=== PATIENT | female | born 1935 | race Caucasian/White ===

== ENCOUNTER 2018-01-01 16:14 | Emergency (ER) | payer MEDICARE ==
[2018-01-01 16:29] VITALS: BP 115/79
[2018-01-01] MEDS ORDERED: SODIUM CHLORIDE 0.9% 500 ML IV ONE (16:50)
[2018-01-01] MEDS ORDERED: LORazepam 0.5 MG TABLET PO STA (16:50)
--- NOTE | 2018-01-01 16:53 | ED Physician Documentation ---
History of Present Illness - Stated complaint Stated Complaint: SOA - Chief complaint Chief Complaint: Resp - History obtained from History obtained from: Patient, Family - History of Present Illness Timing: Yesterday Pain level max: 0 Pain level now: 0 Improved by: nothing Worsened by: nothing - Additonal information Additional information: Patient is an 82-year-old female who lives at home with her daughter. She states she has not slept for the last 24 hours. Has been having feelings of increasing anxiety. Has had anxiety attacks in the past. States that when this happened she feels like she cannot breathe. Has not taken anything for the anxiety. She also states that she has had increased urinary frequency and is concerned that she may have a UTI. No abdominal pain. No headache. No chest pain. 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 : Incontinence HEENT: Glaucoma Psych: Anxiety Musculoskeletal: Chronic back pain Derm: None - Past Surgical History Past Surgical History: No - Present Medications Home Medications: Ambulatory Orders Medication Instructions Recorded Confirmed Citalopram [CeleXA] 40 mg PO DAILY 08/16/15 08/24/15 Omeprazole 20 mg PO DAILY 08/16/15 08/24/15 Tolterodine Tartrate [Tolterodine 1 cap DAILY 08/16/15 08/24/15 Tartrate ER] oxyCODONE/ACET 5/325 [Percocet 5 1 each PO Q4-6H PRN #20 tablet 08/16/15 mg/325 mg] traZODone [Desyrel] 75 mg PO Q24HR@2100 08/16/15 08/24/15 Cyclobenzaprine [Flexeril] 10 mg PO TID PRN #20 tablet 08/24/15 Gabapentin 300 mg PO TID #90 capsule 08/24/15 Simvastatin 40 mg PO 08/24/15 oxyCODONE [Roxicodone] 10 mg PO Q6H PRN #20 tablet 08/24/15 - Allergies Allergies/Adverse Reactions: Allergies Allergy/AdvReac Type Severity Reaction Status Date / Time codeine AdvReac Itching Verified 01/01/18 16:29 - Social History Does the pt smoke?: No Smoking Status: Never smoker Does the pt drink ETOH?: No Does the pt have substance abuse?: No - Immunizations Immunizations are current?: Yes - POLST Patient has POLST: No PD ED PE NORMAL - Vitals Vital signs reviewed: Yes - General General: Alert and oriented X 3, No acute distress, Well developed/nourished - HEENT HEENT: PERRL, Moist mucous membranes - Neck Neck: Supple, no meningeal sign - Cardiac Cardiac: RRR, Strong equal pulses - Respiratory Respiratory: No respiratory distress, Clear bilaterally - Abdomen Abdomen: Soft, Non tender, Non distended - Back Back: No CVA TTP, No spinal TTP - Derm Derm: Warm and dry, No rash - Extremities Extremities: No edema, No calf tenderness / cord - Neuro Neuro: Alert and oriented X 3 - Psych Psych: Normal mood, Normal affect Results - Vitals Vitals: Vital Signs - 24 hr 01/01/18 16:15 Temperature 37.4 C Heart Rate 68 Respiratory 20 Rate Blood Pressure 115/79 O2 Saturation 97 Oxygen O2 Source Room air - Labs Labs: Laboratory Tests 01/01/18 01/01/18 01/01/18 17:00 17:00 17:35 WBC 8.9 RBC 4.16 L Hgb 12.9 Hct 37.2 MCV 89.5 MCH 30.9 MCHC 34.6 RDW 13.1 Plt Count 227 MPV 9.6 Neut # (Auto) 6.0 Lymph # (Auto) 2.0 [place] # (Auto) 0.7 Eos # (Auto) 0.2 Baso # (Auto) 0.1 Absolute Nucleated RBC 0.00 Nucleated RBC % 0.1 Sodium 139 Potassium 3.6 Chloride 103 Carbon Dioxide 25 Anion Gap 11.0 BUN 13 Creatinine 0.7 Estimated GFR (MDRD) 81 L Glucose 108 H Calcium 9.4 Total Bilirubin 0.8 AST 20 ALT 16 Alkaline Phosphatase 74 Total Protein 7.3 Albumin 4.2 Globulin 3.1 Albumin/Globulin Ratio 1.4 Lipase 17 L Urine Color YELLOW Urine Clarity CLEAR Urine pH 6.0 Ur Specific [place] 1.010 Urine Protein NEGATIVE Urine Glucose (UA) NEGATIVE Urine Ketones TRACE Urine Occult Blood NEGATIVE Urine Nitrite NEGATIVE Urine Bilirubin NEGATIVE Urine Urobilinogen 1 (NORMAL) Ur Leukocyte Esterase NEGATIVE Ur Microscopic Review NOT INDICATED Urine Culture Comments NOT INDICATED PD MEDICAL DECISION MAKING - ED course Complexity details: reviewed results, re-evaluated patient, considered differential, d/w patient, d/w family ED course: Patient is an 82-year-old female who presents to the emergency department with what appears to be anxiety. She also does appear slightly dehydrated on examination, therefore IV fluids were given, 500 mL's of normal saline. Also given Ativan. Feels much better. Lungs are clear to auscultation bilaterally. No fever. No cough. Chest x-ray held at this time. She has chronic dyspnea. Has been worked up for this several times in the past. Family is comfortable taking her home at this time. Patient and family counseled regarding signs and symptoms for which I believe and urgent re-evaluation would be necessary. Patient with good understanding of and agreement to plan and is comfortable going home at this time This document was made in part using voice recognition software. While efforts are made to proofread this document, sound alike and grammatical errors may occur. - Sepsis Event Vital Signs: Vital Signs - 24 hr 01/01/18 16:15 Temperature 37.4 C Heart Rate 68 Respiratory 20 Rate Blood Pressure 115/79 O2 Saturation 97 Oxygen O2 Source Room air Departure - Departure Disposition: 01 Home, Self Care Clinical Impression: Dehydration, Anxiety Condition: Good Instructions: ED Dehydration, ED Panic Attack Follow-Up: Brennen Driver MD [Primary Care Provider] - Within 1 week Comments: your tests are normal today. Follow up with Dr. Driver for further care. Return if you worsen. You should discuss with your doctor medication for your anxiety. Discharge Date/Time: 01/01/18 18:21
[2018-01-01 17:14] LABS: BASOPHILS # (AUTO) 0.1 10^3/uL (0.0-0.1); BASOPHILS % (AUTO) 0.8 %; EOSINOPHILS # (AUTO) 0.2 10^3/uL (0.0-0.7); EOSINOPHILS % (AUTO) 1.8 %; HGB - HEMOGLOBIN 12.9 g/dL (12.0-16.0); LYMPHOCYTES % (AUTO) 22.2 %; MEAN CORPUSCULAR HEMOGLOBIN 30.9 pg (27.0-31.0); MEAN CORPUSCULAR HGB CONC 34.6 g/dL (32.0-36.0); MEAN CORPUSCULAR VOLUME 89.5 fL (81.0-99.0); MEAN PLATELET VOLUME 9.6 fL (7.9-10.8); MONOCYTES # (AUTO) 0.7 10^3/uL (0.0-1.0); MONOCYTES % (AUTO) 7.3 %; NEUTROPHILS % (AUTO) 67.9 %; PLT - PLATELET COUNT 227 10^3/uL (130-450); RED BLOOD COUNT 4.16 10^6/uL (4.20-5.40); RED CELL DISTRIBUTION WIDTH 13.1 % (12.0-15.0); WHITE BLOOD COUNT 8.9 x10^3/uL (4.8-10.8)
[2018-01-01 17:28] LABS: ALBUMIN 4.2 g/dL (3.2-5.5); ALBUMIN/GLOBULIN RATIO 1.4 (1.0-2.2); BILIRUBIN,TOTAL 0.8 mg/dL (0.2-1.0); CALCIUM 9.4 mg/dL (8.5-10.3); CREATININE 0.7 mg/dL (0.4-1.0); TOTAL PROTEIN 7.3 g/dL (6.7-8.2)
[2018-01-01 17:53] LABS: BILIRUBIN,URINE NEGATIVE (NEGATIVE); GLUCOSE, URINE (UA) NEGATIVE (NEGATIVE); KETONES,URINE (UA) TRACE mg/dL (NEGATIVE); LEUKOCYTE ESTERASE, URINE NEGATIVE (NEGATIVE); NITRITE,URINE NEGATIVE (NEGATIVE); OCCULT BLOOD,URINE NEGATIVE (NEGATIVE); PROTEIN,URINE NEGATIVE (NEGATIVE); UROBILINOGEN,URINE 1 (NORMAL) E.U./dL (NORMAL)
[2018-01-01 17:59] LABS: CLARITY,URINE CLEAR (CLEAR)
== END 2018-01-01 18:21 | disposition home or self-care (01) ==
LOC: ED 16:14
DX: E86.0 Dehydration (principal); F41.9 Anxiety disorder, unspecified; E78.00 Pure hypercholesterolemia, unspecified
CPT/HCPCS: 36415; 80053; 81003; 83690; 85025; 96360; 99283; 99284; A9270; 81001; 87086

== ENCOUNTER 2019-06-13 01:24 | Emergency (ER) | payer MEDICARE, OTHER ==
--- NOTE | 2019-06-13 01:41 | ED Physician Documentation ---
History of Present Illness - Stated complaint Stated Complaint: DIFFICULTY BREATHING - Chief complaint Chief Complaint: Resp - History obtained from History obtained from: Patient, Family (83-year-old female history of anxiety, hyperlipidemia, chronic lower back pain presented emergency room with sudden onset of shortness of breath 2 hours after she went to bed. This happened at 1:00 in the morning. There was no complaint of chest pain. No nausea no vomiting. In emergency room patient appears mildly anxious and hyperventilating. She is accompanied by her daughter who present to me most of the history. Patient is alert and oriented x3. No recent long distance travel. No prior history of DVT, no prior history of pulmonary embolism. Cardiac risk factor: Hyperlipidemia,) - History of Present Illness Timing: Prior to arrival Review of Systems Ten Systems: 10 systems reviewed and negative Constitutional: reports: Reviewed and negative Eyes: reports: Reviewed and negative Ears: reports: Reviewed and negative Nose: reports: Reviewed and negative Throat: reports: Reviewed and negative Cardiac: reports: Reviewed and negative Respiratory: reports: Dyspnea. 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 : Incontinence HEENT: Glaucoma Psych: Anxiety Musculoskeletal: Chronic back pain Derm: None - Past Surgical History Past Surgical History: No - Present Medications Home Medications: Ambulatory Orders Medication Instructions Recorded Confirmed Citalopram [CeleXA] 40 mg PO DAILY 08/16/15 08/24/15 Omeprazole 20 mg PO DAILY 08/16/15 08/24/15 Tolterodine Tartrate [Tolterodine 1 cap DAILY 08/16/15 08/24/15 Tartrate ER] oxyCODONE/ACET 5/325 [Percocet 5 1 each PO Q4-6H PRN #20 tablet 08/16/15 08/24/15 mg/325 mg] traZODone [Desyrel] 75 mg PO Q24HR@2100 08/16/15 08/24/15 Cyclobenzaprine [Flexeril] 10 mg PO TID PRN #20 tablet 08/24/15 Gabapentin 300 mg PO TID #90 capsule 08/24/15 Simvastatin 40 mg PO 08/24/15 oxyCODONE [Roxicodone] 10 mg PO Q6H PRN #20 tablet 08/24/15 Alprazolam [Xanax] 0.5 mg PO PRN PRN #10 tablet 06/13/19 - Allergies Allergies/Adverse Reactions: Allergies Allergy/AdvReac Type Severity Reaction Status Date / Time codeine AdvReac Itching Verified 01/01/18 16:29 - Social History Does the pt smoke?: No Smoking Status: Never smoker Does the pt drink ETOH?: No Does the pt have substance abuse?: No - Immunizations Immunizations are current?: Yes - POLST Patient has POLST: No PD ED PE NORMAL - Vitals Vital signs reviewed: Yes - General General: Alert and oriented X 3, No acute distress - HEENT HEENT: PERRL - Neck Neck: Supple, no meningeal sign - Cardiac Cardiac: RRR, No murmur - Respiratory Respiratory: Other (Scanty basal inspiratory rhonchi) - Abdomen Abdomen: Normal bowel sounds, Soft, Non tender, Non distended - Derm Derm: Warm and dry - Extremities Extremities: No deformity - Neuro Neuro: Alert and oriented X 3 - Psych Psych: Normal mood, Normal affect Results - Vitals Vitals: Vital Signs - 24 hr 06/13/19 06/13/19 06/13/19 01:32 02:36 04:00 Temperature 36.1 C L 37.2 C Heart Rate 86 81 79 Respiratory 24 17 20 Rate Blood Pressure 154/53 H 121/79 138/72 H O2 Saturation 96 99 96 Oxygen O2 Source Room air - EKG (time done) No standard instances Rate: Rate (enter#) (85) Rhythm: NSR [place]: Normal Intervals: Normal NH QRS: Normal Ischemia: Normal ST segments - Labs Labs: Laboratory Tests 06/13/19 06/13/19 06/13/19 01:40 01:40 01:40 WBC 9.5 RBC 4.71 Hgb 14.3 Hct 43.0 MCV 91.3 MCH 30.4 MCHC 33.3 RDW 12.1 Plt Count 260 MPV 11.6 H Neut # (Auto) 6.9 H Lymph # (Auto) 1.8 [place] # (Auto) 0.6 Eos # (Auto) 0.1 Baso # (Auto) 0.1 Absolute Nucleated RBC 0.00 Nucleated RBC % 0.0 D-Dimer > 1050.0 H Sodium 139 Potassium 4.0 Chloride 105 Carbon Dioxide 21 Anion Gap 13.0 BUN 10 Creatinine 0.8 Estimated GFR (MDRD) 69 L Glucose 133 H Calcium 9.3 Total Bilirubin 0.8 AST 24 ALT 22 Alkaline Phosphatase 70 Troponin I High Sens B-Natriuretic Peptide Total Protein 7.7 Albumin 4.4 Globulin 3.3 Albumin/Globulin Ratio 1.3 Lipase 21 L Urine Color Urine Clarity Urine pH Ur Specific [place] Urine Protein Urine Glucose (UA) Urine Ketones Urine Occult Blood Urine Nitrite Urine Bilirubin Urine Urobilinogen Ur Leukocyte Esterase Urine RBC Urine WBC Ur Squamous Epith Cells Urine Bacteria Urine Culture Comments 06/13/19 06/13/19 06/13/19 01:40 01:40 03:45 WBC RBC Hgb Hct MCV MCH MCHC RDW Plt Count MPV Neut # (Auto) Lymph # (Auto) [place] # (Auto) Eos # (Auto) Baso # (Auto) Absolute Nucleated RBC Nucleated RBC % D-Dimer Sodium Potassium Chloride Carbon Dioxide Anion Gap BUN Creatinine Estimated GFR (MDRD) Glucose Calcium Total Bilirubin AST ALT Alkaline Phosphatase Troponin I High Sens 4.1 3.9 B-Natriuretic Peptide 79 Total Protein Albumin Globulin Albumin/Globulin Ratio Lipase Urine Color Urine Clarity Urine pH Ur Specific [place] Urine Protein Urine Glucose (UA) Urine Ketones Urine Occult Blood Urine Nitrite Urine Bilirubin Urine Urobilinogen Ur Leukocyte Esterase Urine RBC Urine WBC Ur Squamous Epith Cells Urine Bacteria Urine Culture Comments 06/13/19 04:30 WBC RBC Hgb Hct MCV MCH MCHC RDW Plt Count MPV Neut # (Auto) Lymph # (Auto) [place] # (Auto) Eos # (Auto) Baso # (Auto) Absolute Nucleated RBC Nucleated RBC % D-Dimer Sodium Potassium Chloride Carbon Dioxide Anion Gap BUN Creatinine Estimated GFR (MDRD) Glucose Calcium Total Bilirubin AST ALT Alkaline Phosphatase Troponin I High Sens B-Natriuretic Peptide Total Protein Albumin Globulin Albumin/Globulin Ratio Lipase Urine Color YELLOW Urine Clarity CLEAR Urine pH 6.5 Ur Specific [place] <=1.005 Urine Protein NEGATIVE Urine Glucose (UA) NEGATIVE Urine Ketones TRACE Urine Occult Blood NEGATIVE Urine Nitrite NEGATIVE Urine Bilirubin NEGATIVE Urine Urobilinogen 4 H Ur Leukocyte Esterase NEGATIVE Urine RBC 0-5 Urine WBC 0-3 Ur Squamous Epith Cells FEW Squamous Urine Bacteria Rare Urine Culture Comments NOT INDICATED - Rads (name of study) chest Radiology: Other (Stable appearance of the chest without acute cardiopulmonary abnormality. ) ct Radiology: Other (IMPRESSION: No evidence of pulmonary embolism, there is moderate to severe aortic atherosclerosis. There is no significant pulmonary consolidation there is a 5 mm right apical and left lower lobe nodule this may be a sequelae of infection or inflammatory process) PD MEDICAL DECISION MAKING - ED course Complexity details: d/w patient, d/w family ED course: This lady presented with symptom of shortness of breath and anxiety. She is accompanied by her daughter at bedside. Initial diagnosis include acute coronary syndrome, COPD, asthma, pneumothorax, pneumonia,. Work-up has been initiated D-dimer appeared to be elevated. There is a need to further differential diagnosis of pulmonary embolism. At 340 in the morning, patient disclose negative CT scan of the chest for pulmonary embolism. There is however a nodule of 5 mm that is very nonspecific. There disclose this information and asked to follow-up with her [facility] doctor for further surveillance In the emergency room patient has been feeling well. patient is disclosed negative troponin x2. I believe the initial presentation of shortness of breath is consistent with what she feel, anxiety related. She will be given a prescription of Xanax and asked to follow with her primary care doctor for further management. She understood and agree Departure - Departure Disposition: 01 Home, Self Care Clinical Impression: Anxiety Dyspnea Qualifiers: Dyspnea type: shortness of breath Qualified Code(s): R06.02 - Shortness of breath Condition: Stable Record reviewed to determine appropriate education?: Yes Plan of Treatment: Please take Xanax as needed only when you have anxiety problem Instructions: ED Dyspnea Shortness of Breath, ED Anxiety Reaction Follow-Up: Brennen Driver MD [Primary Care Provider] - Prescriptions: Alprazolam [Xanax] 0.5 mg PO PRN PRN #10 tablet PRN Reason: Anxiety
[2019-06-13 01:51] LABS: BASOPHILS # (AUTO) 0.1 10^3/uL (0.0-0.1); BASOPHILS % (AUTO) 0.7 %; EOSINOPHILS # (AUTO) 0.1 10^3/uL (0.0-0.7); EOSINOPHILS % (AUTO) 1.2 %; HGB - HEMOGLOBIN 14.3 g/dL (12.0-16.0); LYMPHOCYTES # (AUTO) 1.8 10^3/uL (1.5-3.5); LYMPHOCYTES % (AUTO) 19.3 %; MEAN CORPUSCULAR HEMOGLOBIN 30.4 pg (27.0-31.0); MEAN CORPUSCULAR HGB CONC 33.3 g/dL (32.0-36.0); MEAN CORPUSCULAR VOLUME 91.3 fL (81.0-99.0); MEAN PLATELET VOLUME 11.6 fL (7.9-10.8); MONOCYTES # (AUTO) 0.6 10^3/uL (0.0-1.0); MONOCYTES % (AUTO) 5.9 %; NEUTROPHILS # (AUTO) 6.9 10^3/uL (1.5-6.6); NEUTROPHILS % (AUTO) 72.5 %; PLT - PLATELET COUNT 260 10^3/uL (130-450); RED BLOOD COUNT 4.71 10^6/uL (4.20-5.40); RED CELL DISTRIBUTION WIDTH 12.1 % (12.0-15.0); WHITE BLOOD COUNT 9.5 x10^3/uL (4.8-10.8)
--- NOTE | 2019-06-13 02:02 | XRAY Report ---
Reason: Chest Pain Procedure Date: 06/13/2019 Accession Number: [id number] / [id number] Procedure: XR - Chest 1 View X-Ray CPT Code: 40497 Final Report FULL RESULT: EXAM: CHEST RADIOGRAPHY EXAM DATE: 06/13/2019 01:56 AM. CLINICAL HISTORY: Chest Pain. COMPARISON: CHEST 2 VIEW PA/LAT 07/14/2015 2:13 PM. TECHNIQUE: 1 view. FINDINGS: Lungs/Pleura: No significant consolidation, effusion, or definite pneumothorax. Mediastinum: Cardiac silhouette is within normal limits when accounting for lung volumes and technique. Other: Moderate bilateral shoulder degenerative change. IMPRESSION: Stable appearance of the chest without acute cardiopulmonary abnormality. RADIA
[2019-06-13 02:03] LABS: ALBUMIN 4.4 g/dL (3.2-5.5); ALBUMIN/GLOBULIN RATIO 1.3 (1.0-2.2); BILIRUBIN,TOTAL 0.8 mg/dL (0.2-1.0); CALCIUM 9.3 mg/dL (8.5-10.3); CREATININE 0.8 mg/dL (0.4-1.0); TOTAL PROTEIN 7.7 g/dL (6.7-8.2)
[2019-06-13] MEDS: IPRATROPIUM/ALBUTEROL 3 ML NEB INH STA ×2 (02:06→02:16)
[2019-06-13] MEDS ORDERED: LORazepam 2 MG/ML VIAL IVP STA (02:22)
[2019-06-13] MEDS ORDERED: IOVERSOL 320 100 ML VIAL IVP ONE ×2 (02:33→03:03)
--- NOTE | 2019-06-13 03:30 | CT Report ---
Reason: shortness of breath with elevated d-dimer Procedure Date: 06/13/2019 Accession Number: [id number] / [id number] Procedure: CT - ANGIO CHEST W/WO CPT Code: Final Report FULL RESULT: EXAM: CT ANGIOGRAM CHEST CT ANGIOGRAM ABDOMEN EXAM DATE: 06/13/2019 03:05 AM CLINICAL HISTORY: Shortness of breath with elevated D-dimer. COMPARISON: None. TECHNIQUE: Axial helical multidetector images of the chest are acquired in the pulmonary arterial phase. Angiographic images of the abdominal structures are acquired. IV Contrast: 80 mL Optiray 320. Reconstructions: Coronal 3D MIP reconstructions. Sagittal and coronal. In accordance with CT protocol optimization, one or more of the following dose reduction techniques were utilized for this exam: automated exposure control, adjustment of mA and/or KV based on patient size, or use of iterative reconstructive technique. FINDINGS: Pulmonary Arteries: There is adequate opacification through the segmental arteries. No evidence for acute or chronic pulmonary emboli. Lungs and Pleura: Breathing motion artifact compromises sensitivity and specificity. There is a small indistinct nodular focus within the right apex region laterally, measuring 5.2 mm (image 53 series 7). Similar small indistinct nodule within the left lower lobe measuring 5 mm (image 185 series 3). No pulmonary consolidation. No effusion. There is mild bilateral apical paraseptal emphysema, right greater than left. Central Airways: Visualized central airways are without suspicious filling defects. Chest Wall: No significant abnormality. Thyroid: No significant abnormality. Mediastinum: No significant abnormality. Heart: Normal in size. Mild to moderate coronary vascular calcifications. No significant pericardial effusion. Thoracic Aorta: Moderate to severe aortic atherosclerosis is noted. There is no evidence of aortic aneurysm or dissection. Abdomen: There is severe abdominal aortic atherosclerosis. No evidence of abdominal aortic dissection. No evidence of abdominal aortic aneurysm. 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 Moderate to severe atherosclerosis within the renal arteries bilaterally. Detailed assessment of the abdominal parenchymal organs compromised by breathing motion. 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 No abnormally dilated bowel loops noted to suggest obstruction. Bones: No suspicious bony lesions evident. Moderate multilevel degenerative changes within the spine. IMPRESSION: 1. No evidence of pulmonary embolism. 2. There is moderate to severe aortic atherosclerosis. There is moderate to severe multifocal branch vessel stenoses within the abdominal aorta. 3. There is no significant pulmonary consolidation. Nonspecific 5 mm right apical and left lower lobe nodule. These may be a sequela of infection or inflammatory process. Aggressive management of this nodule is of uncertain clinical benefit in this elderly patient with atherosclerotic vascular disease. If clinically warranted, this could be further assessed with a follow-up noncontrast chest CT at 12 months. TANISHA
[2019-06-13 04:39] VITALS: BP 138/72
[2019-06-13 04:55] LABS: BILIRUBIN,URINE NEGATIVE (NEGATIVE); GLUCOSE, URINE (UA) NEGATIVE (NEGATIVE); KETONES,URINE (UA) TRACE mg/dL (NEGATIVE); LEUKOCYTE ESTERASE, URINE NEGATIVE (NEGATIVE); NITRITE,URINE NEGATIVE (NEGATIVE); OCCULT BLOOD,URINE NEGATIVE (NEGATIVE); PH,URINE 6.5 PH (5.0-7.5); PROTEIN,URINE NEGATIVE (NEGATIVE); UROBILINOGEN,URINE 4 E.U./dL (NORMAL)
[2019-06-13 04:56] LABS: CLARITY,URINE CLEAR (CLEAR)
[2019-06-13 05:00] LABS: RBC,URINE 0-5 /HPF (0-5)
[2019-06-13 05:01] LABS: BACTERIA,URINE Rare /HPF (None Seen); SQUAMOUS EPITHELIAL CELL,UR FEW Squamous (<= Few)
== END 2019-06-13 05:16 | disposition home or self-care (01) ==
LOC: ED 01:24
DX: F41.9 Anxiety disorder, unspecified (principal); R06.02 Shortness of breath; R79.89 Other specified abnormal findings of blood chemistry; R91.1 Solitary pulmonary nodule; E78.5 Hyperlipidemia, unspecified; M54.5 Low back pain; G89.29 Other chronic pain
CPT/HCPCS: 36415; 71045; 71275; 80053; 81001; 83690; 83880; 84484; 85025; 85379; 93005; 96374; 99283; 99284; J2060; Q9967; 87086

== ENCOUNTER 2020-09-28 20:54 | Outpatient (CLI) | payer MEDICARE | END 2020-09-28 20:55 | disposition critical access hospital (66) | LOC: EMS 20:54 | DX: R11.2 Nausea with vomiting, unspecified (principal); R10.9 Unspecified abdominal pain | CPT/HCPCS: A0425; A0427 ==

== ENCOUNTER 2020-09-28 21:12 | Emergency (ER) | payer MEDICARE ==
[2020-09-28 21:46] LABS: BASOPHILS # (AUTO) 0.1 10^3/uL (0.0-0.1); BASOPHILS % (AUTO) 0.6 %; EOSINOPHILS # (AUTO) 0.1 10^3/uL (0.0-0.7); EOSINOPHILS % (AUTO) 0.9 %; LYMPHOCYTES # (AUTO) 1.5 10^3/uL (1.5-3.5); LYMPHOCYTES % (AUTO) 10.2 %; MEAN CORPUSCULAR HEMOGLOBIN 30.9 pg (27.0-31.0); MEAN CORPUSCULAR HGB CONC 33.3 g/dL (32.0-36.0); MEAN CORPUSCULAR VOLUME 92.6 fL (81.0-99.0); MONOCYTES # (AUTO) 0.9 10^3/uL (0.0-1.0); MONOCYTES % (AUTO) 6.1 %; NEUTROPHILS # (AUTO) 12.1 10^3/uL (1.5-6.6); NEUTROPHILS % (AUTO) 81.9 %; PLT - PLATELET COUNT 244 10^3/uL (130-450); RED BLOOD COUNT 4.21 10^6/uL (4.20-5.40); RED CELL DISTRIBUTION WIDTH 12.1 % (12.0-15.0); WHITE BLOOD COUNT 14.8 x10^3/uL (4.8-10.8)
[2020-09-28 21:58] LABS: ALBUMIN 4.8 g/dL (3.2-5.5); ALBUMIN/GLOBULIN RATIO 1.8 (1.0-2.2); BILIRUBIN,TOTAL 0.6 mg/dL (0.2-1.0); CALCIUM 9.2 mg/dL (8.5-10.3); CREATININE 0.9 mg/dL (0.4-1.0); POTASSIUM 3.7 mmol/L (3.5-5.0); TOTAL PROTEIN 7.4 g/dL (6.7-8.2)
[2020-09-28 22:14] LABS: BILIRUBIN,URINE NEGATIVE (NEGATIVE); GLUCOSE, URINE (UA) NEGATIVE (NEGATIVE); KETONES,URINE (UA) 15 mg/dL (NEGATIVE); LEUKOCYTE ESTERASE, URINE NEGATIVE (NEGATIVE); NITRITE,URINE NEGATIVE (NEGATIVE); OCCULT BLOOD,URINE NEGATIVE (NEGATIVE); PROTEIN,URINE NEGATIVE (NEGATIVE); UROBILINOGEN,URINE 0.2 (NORMAL) E.U./dL (NORMAL)
[2020-09-28 22:21] LABS: CLARITY,URINE CLEAR (CLEAR)
[2020-09-28] MEDS ORDERED: HYDROmorphone 1 MG/ML CARPUJECT IVP STA (22:21)
[2020-09-28] MEDS ORDERED: SODIUM CHLORIDE 0.9% 1,000 ML IV STA (22:21)
[2020-09-28] MEDS ORDERED: IOPAMIDOL-300 100 ML VIAL ONE (22:44)
[2020-09-28] MEDS ORDERED: IOPAMIDOL-300 100 ML VIAL IVP ONE (23:28)
[2020-09-29] MEDS ORDERED: HYDROmorphone 1 MG/ML CARPUJECT IVP STA (00:11)
[2020-09-29] MEDS ORDERED: metroNIDAZOLE 250 MG TABLET PO STA (00:44)
[2020-09-29] MEDS ORDERED: levoFLOXacin 250 MG TABLET PO STA (00:44)
[2020-09-29] MEDS ORDERED: HYDROcod/ACET 5/325 Prepack 4 PO STA (00:55)
[2020-09-29] MEDS ORDERED: diphenhydrAMINE INJ 50 MG/ML VIAL IVP STA (00:55)
[2020-09-29] MEDS ORDERED: ONDANSETRON ODT 4 MG Prepack 2 TL PRN (00:55)
--- NOTE | 2020-09-29 01:00 | ED Physician Documentation ---
PD HPI ABD PAIN - Stated complaint Stated Complaint: ABD PAIN, N/V - Chief complaint Chief Complaint: Abd Pain - History obtained from History obtained from: Patient, Family - Additional information Additional information: Patient comes emergency department chief complaint of low abdominal pain, nausea, and vomiting that started today. Patient's daughter states that the patient seemed to be fine yesterday. Today, the patient states that she has not been able to hold anything down and that she keeps getting waves of low abdominal pain that go across her entire low abdomen. Patient states she has not been able to have a bowel movement today. She had not been able to urinate today until just before our conversation. No dysuria. No fevers or chills. Patient has had an unknown low abdominal surgery many years ago, but believes she still has her appendix and gallbladder, as well as her reproductive organs. No history of kidney stone. No other complaints at this time. Review of Systems Ten Systems: 10 systems reviewed and negative Constitutional: reports: Reviewed and negative Eyes: reports: Reviewed and negative Ears: reports: Reviewed and negative Nose: reports: Reviewed and negative Throat: reports: Reviewed and negative Cardiac: reports: Reviewed and negative Respiratory: reports: Reviewed and negative GI: reports: Abdominal Pain, Nausea, Vomiting, Constipation : reports: Reviewed and negative Skin: reports: Reviewed and negative Musculoskeletal: reports: Reviewed and negative Neurologic: reports: Reviewed and negative Psychiatric: reports: Reviewed and negative Endocrine: reports: Reviewed and negative Immunocompromised: reports: Reviewed and negative PD PAST MEDICAL HISTORY - Past Medical History Past Medical History: Yes Cardiovascular: High cholesterol Respiratory: Shortness of breath Endocrine/Autoimmune: None GI: GERD 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 : Incontinence HEENT: Glaucoma Psych: Anxiety Musculoskeletal: Chronic back pain Derm: None - Past Surgical History Past Surgical History: No - Present Medications Home Medications: Ambulatory Orders Medication Instructions Recorded Confirmed Citalopram [CeleXA] 40 mg PO DAILY 08/16/15 09/28/20 Omeprazole 20 mg PO DAILY 08/16/15 09/28/20 Tolterodine Tartrate [Tolterodine 1 cap PO DAILY 08/16/15 09/28/20 Tartrate ER] traZODone [Desyrel] 75 mg PO Q24HR@2100 08/16/15 09/28/20 Cyclobenzaprine [Flexeril] 10 mg PO TID PRN #20 tablet 08/24/15 09/28/20 Gabapentin 300 mg PO TID #90 capsule 08/24/15 09/28/20 Simvastatin 40 mg PO DAILY 08/24/15 09/28/20 Alprazolam [Xanax] 0.5 mg PO PRN PRN #10 tablet 06/13/19 09/28/20 Oxybutynin Chloride [Ditropan Xl] 20 mg PO DAILY 09/28/20 09/28/20 hydrOXYzine HCL [Hydroxyzine HCl] 5 mg PO DAILY PRN 09/28/20 09/28/20 HYDROcod/ACETAM 5/325 [[place] 5/325] 1 - 2 tablet PO Q6H PRN #14 tablet 09/29/20 Levofloxacin [Levaquin] 500 mg PO DAILY #14 tablet 09/29/20 Ondansetron Odt [Zofran] 4 mg TL Q6H PRN #10 tablet 09/29/20 metroNIDAZOLE [Flagyl] 500 mg PO BID #28 tablet 09/29/20 - Allergies Allergies/Adverse Reactions: Allergies Allergy/AdvReac Type Severity Reaction Status Date / Time codeine AdvReac Itching Verified 09/28/20 21:20 - Social History Does the pt smoke?: No Smoking Status: Never smoker Does the pt drink ETOH?: No Does the pt have substance abuse?: No - Immunizations Immunizations are current?: Yes - POLST Patient has POLST: No PD ED PE NORMAL - Vitals Vital signs reviewed: Yes - General General: Alert and oriented X 3, No acute distress (Intermittent episodes of grimacing and clutching low abdomen, but in between, no distress), Well developed/nourished - HEENT HEENT: Atraumatic, PERRL, EOMI, Moist mucous membranes - Neck Neck: Supple, no meningeal sign - Cardiac Cardiac: RRR, No murmur, Strong equal pulses - Respiratory Respiratory: No respiratory distress, Clear bilaterally - Abdomen Abdomen: Soft, Non distended, Other (Moderate tenderness without rebound or guarding across low abdomen on both sides) - Back Back: No CVA TTP - Derm Derm: Normal color, Warm and dry, No rash - Extremities Extremities: No deformity, No edema, No calf tenderness / cord - Neuro Neuro: Alert and oriented X 3, 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21 Hgb 13.0 Hct 39.0 MCV 92.6 MCH 30.9 MCHC 33.3 RDW 12.1 Plt Count 244 MPV 11.0 H Neut # (Auto) 12.1 H Lymph # (Auto) 1.5 [place] # (Auto) 0.9 Eos # (Auto) 0.1 Baso # (Auto) 0.1 Absolute Nucleated RBC 0.00 Nucleated RBC % 0.0 Sodium 139 Potassium 3.7 Chloride 102 Carbon Dioxide 27 Anion Gap 10.0 BUN 17 Creatinine 0.9 Estimated GFR (MDRD) 60 L Glucose 123 H Lactic Acid Calcium 9.2 Total Bilirubin 0.6 AST 21 ALT 21 Alkaline Phosphatase 76 Total Protein 7.4 Albumin 4.8 Globulin 2.6 Albumin/Globulin Ratio 1.8 Lipase 17 L Urine Color YELLOW Urine Clarity CLEAR Urine pH 8.0 H Ur Specific [place] 1.020 Urine Protein NEGATIVE Urine Glucose (UA) NEGATIVE Urine Ketones 15 H Urine Occult Blood NEGATIVE Urine Nitrite NEGATIVE Urine Bilirubin NEGATIVE Urine Urobilinogen 0.2 (NORMAL) Ur Leukocyte Esterase NEGATIVE Ur Microscopic Review NOT INDICATED Urine Culture Comments NOT INDICATED 09/28/20 23:35 WBC RBC Hgb Hct MCV MCH MCHC RDW Plt Count MPV Neut # (Auto) Lymph # (Auto) [place] # (Auto) Eos # (Auto) Baso # (Auto) Absolute Nucleated RBC Nucleated RBC % Sodium Potassium Chloride Carbon Dioxide Anion Gap BUN Creatinine Estimated GFR (MDRD) Glucose Lactic Acid 0.9 Calcium Total Bilirubin AST ALT Alkaline Phosphatase Total Protein Albumin Globulin Albumin/Globulin Ratio Lipase Urine Color Urine Clarity Urine pH Ur Specific [place] Urine Protein Urine Glucose (UA) Urine Ketones Urine Occult Blood Urine Nitrite Urine Bilirubin Urine Urobilinogen Ur Leukocyte Esterase Ur Microscopic Review Urine Culture Comments - Rads (name of study) CT abd/pelvis Radiology: Final report received, EMP read indepedently, See rad report (mild duodenal diverticulitis; distention L colon with stool) PD MEDICAL DECISION MAKING - ED course Complexity details: reviewed results, re-evaluated patient, considered differential, d/w patient ED course: The patient was treated symptomatically with IV fluids, Phenergan, and Dilaudid in the ED after having received Zofran in route and still being nauseated. Laboratory studies showed an elevated white blood cell count but normal lactic acid level. The patient was worked up with CT of the abdomen pelvis which showed likely duodenal diverticulitis. The patient was given doses of Flagyl and Levaquin in the emergency department. She was feeling better after second dose of Dilaudid, though she had begun to notice itching after the dose, without rash. The patient was given 12.5 mg of Benadryl IV to help with this. We discussed symptomatic management at home, as well as the fact that the patient will need to take antibiotics for the next couple of weeks. We have discussed the usual indications for return. Departure - Departure Disposition: 01 Home, Self Care Clinical Impression: Diverticulitis Condition: Stable Instructions: ED Diverticulitis Prescriptions: metroNIDAZOLE [Flagyl] 500 mg PO BID #28 tablet Levofloxacin [Levaquin] 500 mg PO DAILY #14 tablet HYDROcod/ACETAM 5/325 [[place] 5/325] 1 - 2 tablet PO Q6H PRN #14 tablet PRN Reason: Pain Ondansetron Odt [Zofran] 4 mg TL Q6H PRN #10 tablet PRN Reason: Nausea / Vomiting Discharge Date/Time: 09/29/20 01:25
[2020-09-29 01:26] VITALS: BP 124/74
--- NOTE | 2020-09-29 11:05 | CT Report ---
PROCEDURE: Abdomen/Pelvis W INDICATIONS: low abd pain CONTRAST: IV CONTRAST: Isovue 300 ml: 100 PO CONTRAST: *NO PO CONTRAST TECHNIQUE: After the administration of intravenous contrast contrast, 5 mm thick sections acquired from the d iaphragms to the symphysis. 5 mm thick coronal and sagittal reformats were acquired. For radiation dose reduction, the following was used: automated exposure control, adjustment of mA and/or kV accor ding to patient size. COMPARISON: None. FINDINGS: Image quality: Excellent. ABDOMEN: Lung bases: Lung bases are clear. Heart size is normal. Mild coronary artery calcification. Small hiatal hernia. Solid organs: Liver and spleen are normal in size and enhancement. Gallbladder is normal. Biliary system is non dilated. Pancreas enhances normally. No adrenal nodules. There is trace right renal pelviectasis. No obstructive stones identified. Kidneys demonstrate normal size and enhancement, without hydronephrosis. Peritoneum and bowel: There is a gastric diverticulum involving the posterior gastric cardia. A duod enal diverticulum is noted in the proximal horizontal segment of duodenum. There is subtle stranding around the duodenal diverticulum. There are scattered colonic diverticula, predominantly involving th e sigmoid colon. A large amount of stool in colon. Bowel loops demonstrate normal wall thickness and caliber. No free fluid or air. Nodes and vessels: No retroperitoneal or mesenteric adenopathy by size criteria. Aorta and inferior vena cava are normal in size. Moderate to severe atherosclerosis. Miscellaneous: No ventral hernias. There are postsurgical changes related to ventral hernia repair. PELVIS: Genitourinary: Bladder wall thickness is normal. There is a curvilinear hyperdense device within th e uterine cavity. Miscellaneous: No inguinal hernias or adenopathy. Bones: No suspicious bony lesions. No vertebral body compression fractures. Scoliosis. Severe dege nerative changes in lumbar spine. IMPRESSION: 1. A duodenal with subtle stranding. Cannot rule out mild duodenal diverticulitis. 2. A gastric diverticulum involving posterior segment cardiac. 3. Sigmoid diverticulosis without CT findings suggest acute sigmoid diverticulitis. 4. A large amount of doing colon consistent with constipation. 5. Trace right renal pelviectasis. No obstructive renal stones. A follow-up ultrasound is suggested. 6. A curvilinear hyperdense device within the uterine cavity. Please note right renal pelviectasis was not mentioned on the preliminary report. The result was disc ussed with Dr. Griggs. Reviewed by: Fior Johnson MD on 09/29/2020 11:04 AM PDT Approved by: Fior Johnson MD on 09/29/2020 11:04 AM PDT Station ID: [id number]
--- NOTE | 2020-09-29 11:08 | ED Physician Documentation ---
ED Addendum - Addendum Addendum: 09/29/20 11:[address] Schilling called me with over read from nighttime radiologist. He states that there is mild right hydronephrosis without evidence of stones on CT. Recommends outpatient follow up ultrasound of the kidneys and bladder. d/w daughter who brought her in yesterday and she voices understanding that Ms. Montalvo's primary doctor will need to order f/u ultrasound kidneys. She goes to the clinic where Dr Driver works. Sees ALFONSO Santana. She will call now for follow up appointment. 09/29/20 11:09
== END 2020-09-29 01:25 | disposition home or self-care (01) ==
LOC: EDUNIT# → ED 21:12
DX: K57.12 Diverticulitis of small intestine without perforation or abscess without bleeding (principal); N13.30 Unspecified hydronephrosis; K59.00 Constipation, unspecified; L29.9 Pruritus, unspecified; T40.2X5A Adverse effect of other opioids, initial encounter; Y92.238 Other place in hospital as the place of occurrence of the external cause
CPT/HCPCS: 36415; 74177; 80053; 81003; 83605; 83690; 85025; 96374; 96375; 96376; 99284; A9270; J1170; J1200; Q9967; 81001; 87086

== ENCOUNTER 2021-07-09 16:47 | Emergency (ER) | payer MEDICARE ==
[2021-07-09] MEDS ORDERED: LORazepam 2 MG/ML VIAL IVP STA (17:23)
--- NOTE | 2021-07-09 17:33 | ED Physician Documentation ---
PD HPI DYSPNEA - Stated complaint Stated Complaint: SOA/N/V/D - Chief complaint Chief Complaint: Resp - History obtained from History obtained from: Patient, Family - History of Present Illness Timing - onset: How many days ago (2) Timing - onset during: Rest Timing - duration: Days (2) Timing - details: Gradual onset, Waxing and waning Pain level max: 0 Pain level now: 0 Associated symptoms: No: Fever, Hemoptysis, Wheezing Recently seen: Not recently seen - Additional information Additional information: -year-old female with a history of anxiety presents to the emergency department complaining of difficulty breathing intermittently for the past 2 days. Nothing makes it better or worse. Comes and goes. No fevers. No cough. No congestion. No chest pain. In the past this has been due to anxiety. No cardiac history. No pulmonary history. Denies any COPD, emphysema, use of inhalers. Denies any cardiac stents, bypasses. Does not have any chest pain. No nausea or vomiting. No abdominal pain. 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 : Incontinence HEENT: Glaucoma Psych: Anxiety Musculoskeletal: Chronic back pain Derm: None - Past Surgical History Past Surgical History: No - Present Medications Home Medications: Ambulatory Orders Medication Instructions Recorded Confirmed Citalopram [CeleXA] 40 mg PO DAILY 08/16/15 09/28/20 Omeprazole 20 mg PO DAILY 08/16/15 09/28/20 Tolterodine Tartrate [Tolterodine 1 cap PO DAILY 08/16/15 09/28/20 Tartrate ER] traZODone [Desyrel] 75 mg PO Q24HR@2100 08/16/15 09/28/20 Cyclobenzaprine [Flexeril] 10 mg PO TID PRN #20 tablet 08/24/15 09/28/20 Gabapentin 300 mg PO TID #90 capsule 08/24/15 09/28/20 Simvastatin 40 mg PO DAILY 08/24/15 09/28/20 ALPRAZolam [Xanax] 0.5 mg PO PRN PRN #10 tablet 06/13/19 09/28/20 Oxybutynin Chloride [Ditropan Xl] 20 mg PO DAILY 09/28/20 09/28/20 hydrOXYzine HCL [Hydroxyzine HCl] 5 mg PO DAILY PRN 09/28/20 09/28/20 HYDROcod/ACETAM 5/325 [[place] 5/325] 1 - 2 tablet PO Q6H PRN #14 tablet 09/29/20 Ondansetron Odt [Zofran] 4 mg TL Q6H PRN #10 tablet 09/29/20 levoFLOXacin [Levaquin] 500 mg PO DAILY #14 tablet 09/29/20 metroNIDAZOLE [Flagyl] 500 mg PO BID #28 tablet 09/29/20 - Allergies Allergies/Adverse Reactions: Allergies Allergy/AdvReac Type Severity Reaction Status Date / Time codeine AdvReac Itching Verified 07/09/21 17:12 - Social History Does the pt smoke?: No Smoking Status: Never smoker Does the pt drink ETOH?: No Does the pt have substance abuse?: No - Immunizations Immunizations are current?: Yes - POLST Patient has POLST: No PD ED PE NORMAL - Vitals Vital signs reviewed: Yes - General General: Alert and oriented X 3, No acute distress, Other (Patient appears very anxious.) - HEENT HEENT: PERRL, Moist mucous membranes - Neck Neck: Supple, no meningeal sign - Cardiac Cardiac: RRR - Respiratory Respiratory: No respiratory distress, Clear bilaterally - Abdomen Abdomen: Soft, Non tender, Non distended - Derm Derm: Warm and dry - Extremities Extremities: No edema, No calf tenderness / cord - Neuro Neuro: Alert and oriented X 3 - Psych Psych: Normal mood, Normal affect Results - Vitals Vitals: Vital Signs - 24 hr 07/09/21 07/09/21 07/09/21 16:50 17:41 18:11 Temperature 37 C Heart Rate 91 90 89 Respiratory 20 28 H 17 Rate Blood Pressure 131/85 H 151/90 H 171/89 H O2 Saturation 96 94 96 07/09/21 07/09/21 07/09/21 18:30 19:00 19:07 Temperature Heart Rate 85 89 95 Respiratory 15 18 15 Rate Blood Pressure 163/90 H 165/90 H 159/85 H O2 Saturation 95 96 96 Oxygen O2 Source Room air - EKG (time done) 1712 Rate: Rate (enter#) (88) Rhythm: NSR, Other (PVC) [place]: Normal Intervals: Normal NH QRS: Normal Ischemia: Normal ST segments, Q waves - Labs Labs: Laboratory Tests 07/09/21 07/09/21 07/09/21 17:12 17:33 17:33 WBC 9.0 RBC 4.33 Hgb 13.1 Hct 39.2 MCV 90.5 MCH 30.3 MCHC 33.4 RDW 11.9 L Plt Count 239 MPV 10.9 H Neut # (Auto) 6.9 H Lymph # (Auto) 1.4 L [place] # (Auto) 0.5 Eos # (Auto) 0.1 Baso # (Auto) 0.1 Absolute Nucleated RBC 0.00 Nucleated RBC % 0.0 Sodium 139 Potassium 4.2 Chloride 103 Carbon Dioxide 24 Anion Gap 12.0 BUN 14 Creatinine 0.8 Estimated GFR (MDRD) 69 L Glucose 131 H Calcium 9.8 Total Bilirubin 0.7 AST 21 ALT 17 Alkaline Phosphatase 74 Troponin I High Sens B-Natriuretic Peptide Total Protein 7.3 Albumin 4.2 Globulin 3.1 Albumin/Globulin Ratio 1.4 Lipase 19 L Nasal Adenovirus (PCR) NOT DETECTED Nasal B. parapertussis DNA (PCR) NOT DETECTED Nasal Coronavir 229E PCR NOT DETECTED Nasal Coronavir HKU1 PCR NOT DETECTED Nasal Coronavir NL63 PCR NOT DETECTED Nasal Coronavir OC43 PCR NOT DETECTED Nasal Enterovir/Rhinovir PCR NOT DETECTED Nasal Influenza B PCR NOT DETECTED Nasal Influenza A PCR NOT DETECTED Nasal Parainfluen 1 PCR NOT DETECTED Nasal Parainfluen 2 PCR NOT DETECTED Nasal Parainfluen 3 PCR NOT DETECTED Nasal Parainfluen 4 PCR NOT DETECTED Nasal RSV (PCR) NOT DETECTED Nasal B.pertussis DNA PCR NOT DETECTED Nasal C.pneumoniae (PCR) NOT DETECTED [place] Metapneumo PCR NOT DETECTED Nasal M.pneumoniae (PCR) NOT DETECTED Nasal SARS-CoV-2 (PCR) NOT DETECTED 07/09/21 07/09/21 17:33 17:33 WBC RBC Hgb Hct MCV MCH MCHC RDW Plt Count MPV Neut # (Auto) Lymph # (Auto) [place] # (Auto) Eos # (Auto) Baso # (Auto) Absolute Nucleated RBC Nucleated RBC % Sodium Potassium Chloride Carbon Dioxide Anion Gap BUN Creatinine Estimated GFR (MDRD) Glucose Calcium Total Bilirubin AST ALT Alkaline Phosphatase Troponin I High Sens 9.0 B-Natriuretic Peptide 152 H Total Protein Albumin Globulin Albumin/Globulin Ratio Lipase Nasal Adenovirus (PCR) Nasal B. parapertussis DNA (PCR) Nasal Coronavir 229E PCR Nasal Coronavir HKU1 PCR Nasal Coronavir NL63 PCR Nasal Coronavir OC43 PCR Nasal Enterovir/Rhinovir PCR Nasal Influenza B PCR Nasal Influenza A PCR Nasal Parainfluen 1 PCR Nasal Parainfluen 2 PCR Nasal Parainfluen 3 PCR Nasal Parainfluen 4 PCR Nasal RSV (PCR) Nasal B.pertussis DNA PCR Nasal C.pneumoniae (PCR) [place] Metapneumo PCR Nasal M.pneumoniae (PCR) Nasal SARS-CoV-2 (PCR) - Rads (name of study) cxr Radiology: Final report received, EMP read contemporaneously, See rad report (No acute abnormality) PD MEDICAL DECISION MAKING - ED course Complexity details: reviewed results, re-evaluated patient, considered differential (No ST elevation [place], no aortic dissection, no PE, no tension pneumothorax, no aortic aneurysm), d/w patient ED course: 85-year-old female presents to the emergency department with what appears to be a anxiety and panic attack. Symptoms resolved with Ativan. No significant lab abnormalities, chest x-ray abnormalities or EKG abnormalities. Patient is currently asymptomatic and request to go home at this time. She will follow up with her doctor to discuss medication for anxiety. Patient counseled regarding signs and symptoms for which I believe and urgent re-evaluation would be necessary. Patient with good understanding of and agreement to plan and is comfortable going home at this time This document was made in part using voice recognition software. While efforts are made to proofread this document, sound alike and grammatical errors may occur. Departure - Departure Disposition: 01 Home, Self Care Clinical Impression: Anxiety Dyspnea Qualifiers: Dyspnea type: unspecified Qualified Code(s): R06.00 - Dyspnea, unspecified Condition: Good Instructions: ED Dyspnea Shortness of Breath, ED Panic Attack Follow-Up: Brennen Driver MD [Primary Care Provider] - Within 1 week Comments: Your testing is normal today. Your laboratory testing does not show any acute abnormalities. There is no evidence of heart attacks. Your chest x-ray does not show any acute abnormalities. Your EKG does not show any acute abnormalities. Your symptoms seem to have resolved with Ativan. Please discuss with your doctor medication for anxiety. Return if you worsen Discharge Date/Time: 07/09/21 19:36
[2021-07-09 17:41] LABS: BASOPHILS # (AUTO) 0.1 10^3/uL (0.0-0.1); BASOPHILS % (AUTO) 0.6 %; EOSINOPHILS # (AUTO) 0.1 10^3/uL (0.0-0.7); EOSINOPHILS % (AUTO) 0.9 %; HCT - HEMATOCRIT 39.2 % (37.0-47.0); HGB - HEMOGLOBIN 13.1 g/dL (12.0-16.0); LYMPHOCYTES # (AUTO) 1.4 10^3/uL (1.5-3.5); LYMPHOCYTES % (AUTO) 15.8 %; MEAN CORPUSCULAR HEMOGLOBIN 30.3 pg (27.0-31.0); MEAN CORPUSCULAR HGB CONC 33.4 g/dL (32.0-36.0); MEAN CORPUSCULAR VOLUME 90.5 fL (81.0-99.0); MEAN PLATELET VOLUME 10.9 fL (7.9-10.8); MONOCYTES # (AUTO) 0.5 10^3/uL (0.0-1.0); MONOCYTES % (AUTO) 5.9 %; NEUTROPHILS # (AUTO) 6.9 10^3/uL (1.5-6.6); NEUTROPHILS % (AUTO) 76.6 %; PLT - PLATELET COUNT 239 10^3/uL (130-450); RED BLOOD COUNT 4.33 10^6/uL (4.20-5.40); RED CELL DISTRIBUTION WIDTH 11.9 % (12.0-15.0)
--- NOTE | 2021-07-09 17:53 | XRAY Report ---
PROCEDURE: Chest 1 View X-Ray INDICATIONS: Chest Pain TECHNIQUE: One view of the chest was acquired. COMPARISON: Chest x-ray one view, 06/13/2019. FINDINGS: Surgical changes and devices: None. Lungs and pleura: No pleural effusions or pneumothorax. Lungs are clear. Mediastinum: Mediastinal contours appear normal. Heart size is normal. Bones and chest wall: No suspicious bony lesions. Overlying soft tissues appear unremarkable. IMPRESSION: No acute cardiopulmonary disease. Reviewed by: Fior Johnson MD on 07/09/2021 5:52 PM PST Approved by: Fior Johnson MD on 07/09/2021 5:52 PM PST Station ID: [id number]
[2021-07-09 17:55] LABS: ALBUMIN 4.2 g/dL (3.2-5.5); ALBUMIN/GLOBULIN RATIO 1.4 (1.0-2.2); BILIRUBIN,TOTAL 0.7 mg/dL (0.2-1.0); CALCIUM 9.8 mg/dL (8.5-10.3); CREATININE 0.8 mg/dL (0.4-1.0); POTASSIUM 4.2 mmol/L (3.5-5.0); TOTAL PROTEIN 7.3 g/dL (6.7-8.2)
[2021-07-09 18:46] LABS: B. PARAPERTUSSIS- RESP PCR PAN NOT DETECTED; B. PERTUSSIS- RESP PCR PANEL NOT DETECTED; C. PNEUMONIAE- RESP PCR PANEL NOT DETECTED; CORONAVIRUS 229E-RESP PCR NOT DETECTED; CORONAVIRUS HKU1-RESP PCR NOT DETECTED; CORONAVIRUS NL63-RESP PCR NOT DETECTED; CORONAVIRUS OC43-RESP PCR NOT DETECTED; HUMAN METAPNEUMOVIRUS NOT DETECTED; INFLUENZA A- RESP PCR PANEL NOT DETECTED; INFLUENZA B - RESP PCR PANEL NOT DETECTED; M. PNEUMONIAE- RESP PCR PANEL NOT DETECTED; PARAINFLUENZA VIRUS 1 NOT DETECTED; PARAINFLUENZA VIRUS 2 NOT DETECTED; PARAINFLUENZA VIRUS 3 NOT DETECTED; PARAINFLUENZA VIRUS 4 NOT DETECTED; RHINOVIRUS/ENTEROVIRUS NOT DETECTED; RSV- RESP PCR PANEL NOT DETECTED; SARS-CoV-2 -RESP PCR PANEL NOT DETECTED
[2021-07-09 19:08] VITALS: BP 159/85
== END 2021-07-09 19:36 | disposition home or self-care (01) ==
LOC: ED 16:47
DX: F41.9 Anxiety disorder, unspecified (principal); R06.09 Other forms of dyspnea; Z20.822 Contact with and (suspected) exposure to COVID-19
CPT/HCPCS: 36415; 71045; 80053; 83690; 83880; 84484; 85025; 87631; 93005; 96374; 99284; J2060; 0202U

== ENCOUNTER 2021-08-06 13:13 | Outpatient (CLI) | payer MEDICARE | END 2021-08-06 13:14 | disposition critical access hospital (66) | LOC: EMS 13:13 | DX: R53.1 Weakness (principal); R42 Dizziness and giddiness; R11.2 Nausea with vomiting, unspecified; R19.7 Diarrhea, unspecified | CPT/HCPCS: A0425; A0427 ==

== ENCOUNTER 2021-08-06 13:34 | Inpatient (IN) | payer MEDICARE ==
[2021-08-06] MEDS ORDERED: SODIUM CHLORIDE 0.9% 1,000 ML IV STA ×3 (13:46→16:19)
[2021-08-06] MEDS ORDERED: PROMETHAZINE INJ 12.5 MG in SODIUM CHLORIDE 0.9% 50 ML IV STA (13:47)
--- NOTE | 2021-08-06 13:50 | ED Physician Documentation ---
History of Present Illness - Stated complaint Stated Complaint: N/V/D - History obtained from History obtained from: Patient, EMS - History of Present Illness Timing: How many days ago (3) Pain level max: 0 Pain level now: 0 - Additonal information Additional information: Patient is an 86-year-old female who presents to the emergency department compl aining of nausea, vomiting and diarrhea for the past 3 days. Today she felt lightheaded, weak and dizzy. She did fall onto the ground, no injuries, but the daughter was unable to lift the patient up and so they called 911 who brought her here for evaluation. Patient states that she has not been on antibiotics. No recent travel. The diarrhea is improving. No vomiting today. Has had decreased oral intake. The diarrhea is 3-4 times a day, nonbloody. No abdominal pain. No fevers. No chills. Review of Systems Ten Systems: 10 systems reviewed and negative Constitutional: denies: Fever, Chills Ears: denies: Ear pain Nose: denies: Rhinorrhea / runny nose, Congestion Throat: denies: Sore throat Cardiac: denies: Chest pain / pressure, Palpitations Respiratory: denies: Dyspnea, Cough GI: reports: Nausea, Vomiting, Diarrhea. 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 : Incontinence HEENT: Glaucoma Psych: Anxiety Musculoskeletal: Chronic back pain Derm: None - Past Surgical History Past Surgical History: No - Present Medications Home Medications: Ambulatory Orders Medication Instructions Recorded Confirmed Citalopram [CeleXA] 40 mg PO DAILY 08/16/15 09/28/20 Omeprazole 20 mg PO DAILY 08/16/15 09/28/20 Tolterodine Tartrate [Tolterodine 1 cap PO DAILY 08/16/15 09/28/20 Tartrate ER] traZODone [Desyrel] 75 mg PO Q24HR@2100 08/16/15 09/28/20 Cyclobenzaprine [Flexeril] 10 mg PO TID PRN #20 tablet 08/24/15 09/28/20 Gabapentin 300 mg PO TID #90 capsule 08/24/15 09/28/20 Simvastatin 40 mg PO DAILY 08/24/15 09/28/20 ALPRAZolam [Xanax] 0.5 mg PO PRN PRN #10 tablet 06/13/19 09/28/20 Oxybutynin Chloride [Ditropan Xl] 20 mg PO DAILY 09/28/20 09/28/20 hydrOXYzine HCL [Hydroxyzine HCl] 5 mg PO DAILY PRN 09/28/20 09/28/20 HYDROcod/ACETAM 5/325 [[place] 5/325] 1 - 2 tablet PO Q6H PRN #14 tablet 09/29/20 Ondansetron Odt [Zofran] 4 mg TL Q6H PRN #10 tablet 09/29/20 levoFLOXacin [Levaquin] 500 mg PO DAILY #14 tablet 09/29/20 metroNIDAZOLE [Flagyl] 500 mg PO BID #28 tablet 09/29/20 - Allergies Allergies/Adverse Reactions: Allergies Allergy/AdvReac Type Severity Reaction Status Date / Time codeine AdvReac Itching Verified 08/06/21 13:49 - Social History Does the pt smoke?: No Smoking Status: Never smoker Does the pt drink ETOH?: No Does the pt have substance abuse?: No - Immunizations Immunizations are current?: Yes - POLST Patient has POLST: No PD ED PE NORMAL - Vitals Vital signs reviewed: Yes - General General: Alert and oriented X 3, No acute distress - HEENT HEENT: PERRL, Other (Dry lips and tongue) - Neck Neck: Supple, no meningeal sign - Cardiac Cardiac: Strong equal pulses, Other (Tachycardic) - Respiratory Respiratory: No respiratory distress, Clear bilaterally - Abdomen Abdomen: Normal bowel sounds, Soft, Non tender, Non distended - Derm Derm: Warm and dry - Extremities Extremities: No edema, No calf tenderness / cord - Neuro Neuro: Alert and oriented X 3 - Psych Psych: Normal mood, Normal affect Results - Vitals Vitals: Vital Signs - 24 hr 08/06/21 08/06/21 13:35 19:11 Temperature 37.2 C Heart Rate 111 H 97 Respiratory 23 14 Rate Blood Pressure 116/57 L O2 Saturation 95 99 Oxygen O2 Source Room air - Labs Labs: Laboratory Tests 08/06/21 08/06/21 08/06/21 14:20 14:20 15:10 WBC 23.9 H RBC 4.14 L Hgb 12.9 Hct 38.4 MCV 92.8 MCH 31.2 H MCHC 33.6 RDW 12.0 Plt Count 187 MPV 11.2 H Neut # (Auto) 21.0 H Lymph # (Auto) 0.6 L [place] # (Auto) 2.1 H Eos # (Auto) 0.0 Baso # (Auto) 0.1 Absolute Nucleated RBC 0.00 Nucleated RBC % 0.0 Manual Slide Review Indicated WBC Morphology NORMAL APPEARANCE Platelet Estimate NORMAL (130-450,000) Platelet Morphology NORMAL APPEARANCE RBC Morph Micro Appear NORMAL APPEARANCE Sodium 140 Potassium 3.9 Chloride 108 Carbon Dioxide 23 Anion Gap 9.0 BUN 21 H Creatinine 1.2 H Estimated GFR (MDRD) 43 L Glucose 136 H Calcium 8.9 Phosphorus 2.5 Magnesium 2.0 Total Bilirubin 0.6 AST 24 ALT 16 Alkaline Phosphatase 68 Total Protein 6.4 L Albumin 3.8 Globulin 2.6 Albumin/Globulin Ratio 1.5 Lipase 19 L Urine Color YELLOW Urine Clarity CLEAR Urine pH 6.5 Ur Specific [place] 1.015 Urine Protein 100 H Urine Glucose (UA) 250 H Urine Ketones TRACE Urine Occult Blood NEGATIVE Urine Nitrite NEGATIVE Urine Bilirubin NEGATIVE Urine Urobilinogen 1 (NORMAL) Ur Leukocyte Esterase NEGATIVE Urine RBC 0-5 Urine WBC 6-10 H Ur Squamous Epith Cells FEW Squamous Urine Bacteria Few Ur Microscopic Review INDICATED Urine Culture Comments NOT INDICATED Nasal Adenovirus (PCR) Nasal B. parapertussis DNA (PCR) Nasal Coronavir 229E PCR Nasal Coronavir HKU1 PCR Nasal Coronavir NL63 PCR Nasal Coronavir OC43 PCR Nasal Enterovir/Rhinovir PCR Nasal Influenza B PCR Nasal Influenza A PCR Nasal Parainfluen 1 PCR Nasal Parainfluen 2 PCR Nasal Parainfluen 3 PCR Nasal Parainfluen 4 PCR Nasal RSV (PCR) Nasal B.pertussis DNA PCR Nasal C.pneumoniae (PCR) [place] Human Metapneumo PCR Nasal M.pneumoniae (PCR) Nasal SARS-CoV-2 (PCR) 08/06/21 19:44 WBC RBC Hgb Hct MCV MCH MCHC RDW Plt Count MPV Neut # (Auto) Lymph # (Auto) [place] # (Auto) Eos # (Auto) Baso # (Auto) Absolute Nucleated RBC Nucleated RBC % Manual Slide Review WBC Morphology Platelet Estimate Platelet Morphology RBC Morph Micro Appear Sodium Potassium Chloride Carbon Dioxide Anion Gap BUN Creatinine Estimated GFR (MDRD) Glucose Calcium Phosphorus Magnesium Total Bilirubin AST ALT Alkaline Phosphatase Total Protein Albumin Globulin Albumin/Globulin Ratio Lipase Urine Color Urine Clarity Urine pH Ur Specific [place] Urine Protein Urine Glucose (UA) Urine Ketones Urine Occult Blood Urine Nitrite Urine Bilirubin Urine Urobilinogen Ur Leukocyte Esterase Urine RBC Urine WBC Ur Squamous Epith Cells Urine Bacteria Ur Microscopic Review Urine Culture Comments Nasal Adenovirus (PCR) NOT DETECTED Nasal B. parapertussis DNA (PCR) NOT DETECTED Nasal Coronavir 229E PCR NOT DETECTED Nasal Coronavir HKU1 PCR NOT DETECTED Nasal Coronavir NL63 PCR NOT DETECTED Nasal Coronavir OC43 PCR NOT DETECTED Nasal Enterovir/Rhinovir PCR NOT DETECTED Nasal Influenza B PCR NOT DETECTED Nasal Influenza A PCR NOT DETECTED Nasal Parainfluen 1 PCR NOT DETECTED Nasal Parainfluen 2 PCR NOT DETECTED Nasal Parainfluen 3 PCR NOT DETECTED Nasal Parainfluen 4 PCR NOT DETECTED Nasal RSV (PCR) NOT DETECTED Nasal B.pertussis DNA PCR NOT DETECTED Nasal C.pneumoniae (PCR) NOT DETECTED [place] Human Metapneumo PCR NOT DETECTED Nasal M.pneumoniae (PCR) NOT DETECTED Nasal SARS-CoV-2 (PCR) NOT DETECTED - Rads (name of study) CT abdomen pelvis Radiology: Final report received, EMP read contemporaneously, See rad report PD MEDICAL DECISION MAKING - ED course Complexity details: reviewed results, re-evaluated patient, considered differential, d/w patient ED course: 86-year-old female with significant weakness, dehydration, UTI and colitis. She was given several liters of fluid, is eating and drinking, but is still unable to stand or walk by herself. She normally walks unassisted and can take care of herself at home. Has a significant leukocytosis as well. CT scan does not show any abscesses or perforation. We will continue antibiotics and admit the patient for further care. Discussed the case with Dr. Rodrigez, hospitalist who accepts IMPRESSION: 1. There is an acute colonic process which is not acute diverticulitis. There is diffuse inflammatory change and wall edema involving the entirety of the ascending colon, as well as the proximal sigmoid and distal half of the transverse colon. Consider infectious versus inflammatory versus ischemic etiologies. 2. Extensive sigmoid diverticulosis. Departure - Departure Disposition: [facility] DC/Xfer Clinical Impression: Dehydration, Colitis UTI (urinary tract infection) Qualifiers: Urinary tract infection type: acute cystitis Hematuria presence: without hematuria Qualified Code(s): N30.00 - Acute cystitis without hematuria Condition: Stable Discharge Date/Time: 08/06/21 21:38
[2021-08-06 14:35] LABS: BASOPHILS # (AUTO) 0.1 10^3/uL (0.0-0.1); BASOPHILS % (AUTO) 0.4 %; EOSINOPHILS % (AUTO) 0.1 %; HCT - HEMATOCRIT 38.4 % (37.0-47.0); HGB - HEMOGLOBIN 12.9 g/dL (12.0-16.0); LYMPHOCYTES # (AUTO) 0.6 10^3/uL (1.5-3.5); LYMPHOCYTES % (AUTO) 2.7 %; MEAN CORPUSCULAR HEMOGLOBIN 31.2 pg (27.0-31.0); MEAN CORPUSCULAR HGB CONC 33.6 g/dL (32.0-36.0); MEAN CORPUSCULAR VOLUME 92.8 fL (81.0-99.0); MEAN PLATELET VOLUME 11.2 fL (7.9-10.8); MONOCYTES # (AUTO) 2.1 10^3/uL (0.0-1.0); MONOCYTES % (AUTO) 8.7 %; NEUTROPHILS % (AUTO) 87.6 %; PLT - PLATELET COUNT 187 10^3/uL (130-450); RED BLOOD COUNT 4.14 10^6/uL (4.20-5.40); WHITE BLOOD COUNT 23.9 x10^3/uL (4.8-10.8)
[2021-08-06 14:42] LABS: SLIDE REVIEW? Indicated
[2021-08-06 14:48] LABS: ALBUMIN 3.8 g/dL (3.2-5.5); ALBUMIN/GLOBULIN RATIO 1.5 (1.0-2.2); BILIRUBIN,TOTAL 0.6 mg/dL (0.2-1.0); CALCIUM 8.9 mg/dL (8.5-10.3); CREATININE 1.2 mg/dL (0.4-1.0); PHOSPHORUS 2.5 mg/dL (2.5-4.6); POTASSIUM 3.9 mmol/L (3.5-5.0); TOTAL PROTEIN 6.4 g/dL (6.7-8.2)
[2021-08-06] MEDS ORDERED: IOVERSOL 320 100 ML VIAL IVP ONE ×2 (15:08→16:26)
[2021-08-06 15:22] LABS: BILIRUBIN,URINE NEGATIVE (NEGATIVE); GLUCOSE, URINE (UA) 250 mg/dL (NEGATIVE); KETONES,URINE (UA) TRACE mg/dL (NEGATIVE); LEUKOCYTE ESTERASE, URINE NEGATIVE (NEGATIVE); NITRITE,URINE NEGATIVE (NEGATIVE); OCCULT BLOOD,URINE NEGATIVE (NEGATIVE); PH,URINE 6.5 PH (5.0-7.5); PROTEIN,URINE 100 mg/dL (NEGATIVE); UROBILINOGEN,URINE 1 (NORMAL) E.U./dL (NORMAL)
[2021-08-06 15:24] LABS: PLATELET ESTIMATE, MANUAL NORMAL (130-450,000) (NORMAL); PLATELET MORPHOLOGY NORMAL APPEARANCE (NORMAL); RBC MORPHOLOGY (MULTIPLE) NORMAL APPEARANCE (NORMAL); WBC MORPHOLOGY (MULTIPLE) NORMAL APPEARANCE (NORMAL)
[2021-08-06 15:29] LABS: CLARITY,URINE CLEAR (CLEAR)
[2021-08-06 16:04] LABS: BACTERIA,URINE Few /HPF (None Seen); RBC,URINE 0-5 /HPF (0-5); SQUAMOUS EPITHELIAL CELL,UR FEW Squamous (<= Few)
--- NOTE | 2021-08-06 16:07 | CT Report ---
PROCEDURE: Abdomen/Pelvis W INDICATIONS: vomiting, diarrhea, wbc 24k CONTRAST: IV CONTRAST: Optiray 320 ml: 100 PO CONTRAST: *NO PO CONTRAST TECHNIQUE: After the administration of intravenous contrast, 5 mm thick sections acquired from the diaphragms to the symphysis. 5 mm thick coronal and sagittal reformats were acquired. For radiation dose reducti on, the following was used: automated exposure control, adjustment of mA and/or kV according to jessica ent size. COMPARISON: 09/28/2020 FINDINGS: Image quality: Excellent. ABDOMEN: Lung bases: Lung bases are clear. Heart size is normal. Coronary artery calcifications. Solid organs: Liver and spleen are normal in size and enhancement. Gallbladder is unremarkable. Bi liary system is non dilated. Pancreas enhances normally. No adrenal nodules. Kidneys demonstrate n ormal size and enhancement, without hydronephrosis. Peritoneum and bowel: There is diffuse wall thickening and edema present involving predominantly the entirety of the descending colon, but to a lesser extent the sigmoid and the distal half of the trans verse colon. Consider infectious versus inflammatory versus ischemic etiologies. Advanced sigmoid div erticulosis. No free air, free fluid, or abscess cavity. Nodes and vessels: No retroperitoneal or mesenteric adenopathy by size criteria. Aorta and inferior vena cava are normal in size. Atherosclerotic calcifications involving the aorta, iliacs, and femor als. Miscellaneous: No ventral hernias. Anterior abdominal mesh repair. PELVIS: Genitourinary: Bladder wall thickness is normal. Miscellaneous: No inguinal hernias or adenopathy. IUD. Bones: No suspicious bony lesions. No vertebral body compression fractures. IMPRESSION: 1. There is an acute colonic process which is not acute diverticulitis. There is diffuse inflammatory change and wall edema involving the entirety of the ascending colon, as well as the proximal sigmoid and distal half of the transverse colon. Consider infectious versus inflammatory versus ischemic [place] ologies. 2. Extensive sigmoid diverticulosis. Reviewed by: Peter Cervantes MD on 08/06/2021 4:06 PM PDT Approved by: Peter Cervantes MD on 08/06/2021 4:06 PM PDT Station ID: [id number]
[2021-08-06] MEDS ORDERED: cefTRIAXone 1 GM VIAL IVP STA (16:19)
[2021-08-06 20:44] LABS: B. PARAPERTUSSIS- RESP PCR PAN NOT DETECTED; B. PERTUSSIS- RESP PCR PANEL NOT DETECTED; C. PNEUMONIAE- RESP PCR PANEL NOT DETECTED; CORONAVIRUS 229E-RESP PCR NOT DETECTED; CORONAVIRUS HKU1-RESP PCR NOT DETECTED; CORONAVIRUS NL63-RESP PCR NOT DETECTED; CORONAVIRUS OC43-RESP PCR NOT DETECTED; HUMAN METAPNEUMOVIRUS NOT DETECTED; INFLUENZA A- RESP PCR PANEL NOT DETECTED; INFLUENZA B - RESP PCR PANEL NOT DETECTED; M. PNEUMONIAE- RESP PCR PANEL NOT DETECTED; PARAINFLUENZA VIRUS 1 NOT DETECTED; PARAINFLUENZA VIRUS 2 NOT DETECTED; PARAINFLUENZA VIRUS 3 NOT DETECTED; PARAINFLUENZA VIRUS 4 NOT DETECTED; RHINOVIRUS/ENTEROVIRUS NOT DETECTED; RSV- RESP PCR PANEL NOT DETECTED; SARS-CoV-2 -RESP PCR PANEL NOT DETECTED
[2021-08-06] MEDS ORDERED: SODIUM CHLORIDE FLUSH 0.9% 10 ML SYRINGE IVP PRN (20:44)
[2021-08-06] MEDS ORDERED: ONDANSETRON 4 MG/2 ML VIAL IVP PRN (20:44)
--- NOTE | 2021-08-06 20:52 | HISTORY & PHYSICAL EXAMINATION ---
Chief Complaint - Chief Complaint Chief Complaint: n/v/d History of Present Illness - Admitted From Admitted From:: [facility] ED - History Obtained From Records Reviewed: yes History obtained from: patient and ED provider Exam Limitations: poor historian - History of Present Illness HPI Comment/Other: Patient is an 86-year-old female who presented to the ED with complaint of nausea, vomiting and diarrhea. This has been going on for the past 3 to 4 days. During this time she has not been taking anything significantly by mouth. As a result she has become significantly weak. Her daughter called EMS because patient was unable to ambulate. She denies eating anything bad or being around anybody sick. In the ED work-up included CBC which showed a WBC of 23.9. CT abdomen/pelvis showed an acute colonic process which was not acute diverticulitis. There was diffuse inflammatory changes and wall edema involving the entirety of the ascending colon as well as the proximal sigmoid and distal half of the transverse colon. It raised the possibility of an infectious versus inflammatory versus ischemic etiology. At bedside she denies chest pain, dyspnea, abdominal pain, fever or chills. As a result of the patient's symptoms she was presented for admission for further treatment. 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 Patient's mother at age 97 from an unspecified cardiac problem. Social History Notes: Patient denies alcohol, tobacco or recreational substance use. She lives with her daughter. She gets around using a walker or a cane. - POLST Patient has POLST: No POLST Status: Full Code Meds/Allgy - Home Medications Home Medications: Ambulatory Orders Medication Instructions Recorded Confirmed Citalopram [CeleXA] 40 mg PO DAILY 08/16/15 09/28/20 Omeprazole 20 mg PO DAILY 08/16/15 09/28/20 Tolterodine Tartrate [Tolterodine 1 cap PO DAILY 08/16/15 09/28/20 Tartrate ER] traZODone [Desyrel] 75 mg PO Q24HR@2100 08/16/15 09/28/20 Cyclobenzaprine [Flexeril] 10 mg PO TID PRN #20 tablet 08/24/15 09/28/20 Gabapentin 300 mg PO TID #90 capsule 08/24/15 09/28/20 Simvastatin 40 mg PO DAILY 08/24/15 09/28/20 ALPRAZolam [Xanax] 0.5 mg PO PRN PRN #10 tablet 06/13/19 09/28/20 Oxybutynin Chloride [Ditropan Xl] 20 mg PO DAILY 09/28/20 09/28/20 hydrOXYzine HCL [Hydroxyzine HCl] 5 mg PO DAILY PRN 09/28/20 09/28/20 HYDROcod/ACETAM 5/325 [[place] 5/325] 1 - 2 tablet PO Q6H PRN #14 tablet 09/29/20 Ondansetron Odt [Zofran] 4 mg TL Q6H PRN #10 tablet 09/29/20 levoFLOXacin [Levaquin] 500 mg PO DAILY #14 tablet 09/29/20 metroNIDAZOLE [Flagyl] 500 mg PO BID #28 tablet 09/29/20 - Allergies Allergies/Adverse Reactions: Allergies Allergy/AdvReac Type Severity Reaction Status Date / Time codeine AdvReac Itching Verified 08/06/21 13:49 Review of Systems - Constitutional Constitutional: denies: Fatigue, Fever, Chills - Eyes Eyes: denies: Pain, Vision loss, Dipolpia - Ears, Nose & Throat Ears, Nose & Throat: denies: Ear pain - Cardiovascular Cariovascular: denies: Irregular heart rate, Palpitations, Chest pain, Edema, Lightheadedness, Syncope, Exertional dyspnea - Respiratory Respiratory: denies: Wheezing, SOB at rest, SOB with exertion - Gastrointestinal Gastrointestinal: reports: Diarrhea, Nausea, Vomiting, Reflux/heartburn. denies: Black stools, Bloody stools, Coffee grounds emesis - Genitourinary Genitourinary: denies: Dysuria, Frequency, Urgency, Hematuria - Musculoskeletal Musculoskeletal: denies: Muscle pain, Back pain, Muscle aches - Integumentary Integumentary: denies: Rash, Pruritis, Lesions - Neurological Neurological: reports: General weakness. denies: Focal weakness, Headache, Dizziness Prior Level of Functionality: She lives with her daughter. She gets around using a walker or a cane. She is independent of activities of daily living. Exam - Vital Signs Vital Signs: Vital Signs x48h Temp Pulse Resp BP Pulse Ox 08/06/21 19:11 97 14 99 08/06/21 13:35 37.2 C 111 H 23 116/57 L 95 - Physical Exam General Appearance: positive: No acute distress, Alert, Other (weakness) Eyes Bilateral: positive: PERRL, EOMI ENT: positive: Dry mucous membranes Neck: positive: No JVD, Trachea midline Respiratory: positive: Chest non-tender, No respiratory distress, Breath sounds nml. negative: Wheezes, Rales, Rhonchi Cardiovascular: positive: Regular rate & rhythm, No murmur Abdomen: positive: Non-tender, No organomegaly, Nml bowel sounds, No distention. negative: Guarding, Rebound Back: positive: Nml inspection Skin: positive: No rash, Warm, Dry Extremities: positive: Non-tender, Full ROM, Nml appearance, No pedal edema Neurologic/Psychiatric: positive: Oriented x3, Mood/affect nml Conclusion/Plan - Problem List (1) Colitis Conclusion/Plan: Etiology undetermined Clear liquid diet ordered. C. diff, blood and stool culture pending Patient was given 3L of fluid in the ED Will continue IV hydration with NS at 100ml/hr Patient was given a dose of Rocephin in the ED. Cipro and flagyl ordered (2) Dehydration Conclusion/Plan: Creatinine wa 1.2 then 1.4 with eGFR of 36. Patient was given 3L of fluid in the ED Will continue IV hydration with NS at 100ml/hr (3) Hyperlipidemia Conclusion/Plan: On simvastatin (4) Depression Conclusion/Plan: On citalopram 40mg po daily. (5) GERD (gastroesophageal reflux disease) Conclusion/Plan: On omeprazole (6) Urinary incontinence Conclusion/Plan: On oxybutynin - Lab Results Fish Bones: 08/06/21 21:20 08/06/21 21:20 Core Measures - Anticipated LOS I expect patient to be DC'd or transferred within 96 hours.: Yes - DVT/VTE - Prophylaxis VTE/DVT Device ordered at admit?: Yes
[2021-08-06 21:24] LABS: BASOPHILS % (AUTO) 0.4 %; EOSINOPHILS % (AUTO) 0.6 %; HCT - HEMATOCRIT 32.3 % (37.0-47.0); HGB - HEMOGLOBIN 10.7 g/dL (12.0-16.0); LYMPHOCYTES % (AUTO) 7.2 %; MEAN CORPUSCULAR HEMOGLOBIN 30.4 pg (27.0-31.0); MEAN CORPUSCULAR HGB CONC 33.1 g/dL (32.0-36.0); MEAN CORPUSCULAR VOLUME 91.8 fL (81.0-99.0); MEAN PLATELET VOLUME 10.8 fL (7.9-10.8); MONOCYTES % (AUTO) 8.8 %; NEUTROPHILS % (AUTO) 82.4 %; PLT - PLATELET COUNT 204 10^3/uL (130-450); RED BLOOD COUNT 3.52 10^6/uL (4.20-5.40); RED CELL DISTRIBUTION WIDTH 12.2 % (12.0-15.0); WHITE BLOOD COUNT 19.7 x10^3/uL (4.8-10.8)
[2021-08-06 21:27] LABS: ABNORMAL LYMPHS % (MANUAL) 0 %
[2021-08-06 21:32] LABS: CALCIUM 8.2 mg/dL (8.5-10.3); CREATININE 1.4 mg/dL (0.4-1.0); POTASSIUM 3.7 mmol/L (3.5-5.0)
[2021-08-06] MEDS: SODIUM CHLORIDE 0.9% 1,000 ML IV SCH (21:58)
[2021-08-06] MEDS: metroNIDAZOLE 500 MG/100 ML 500 MG/100 ML BAG IV SCH (22:04)
[2021-08-06 22:13] LABS: BAND NEUTROPHILS % (MANUAL) 7 %; LYMPHOCYTES % (MANUAL) 5 %; NEUTROPHILS # (MANUAL) 16.7 10^3/uL (1.5-6.6)
[2021-08-06 22:14] LABS: DIFFERENTIAL COMMENT MANUAL DIFFERENTIAL; PLATELET ESTIMATE, MANUAL NORMAL (130-450,000) (NORMAL); RBC MORPHOLOGY (MULTIPLE) NORMAL APPEARANCE (NORMAL)
[2021-08-06] MEDS: CIPROFLOXACIN 400 MG/200 ML 400 MG/200 ML BAG IV SCH (22:19)
[2021-08-06] MEDS ORDERED: ZINC OXIDE 20% OINT 30 GM TUBE TOP PRN (22:59)
[2021-08-07] MEDS: SODIUM CHLORIDE FLUSH 0.9% 10 ML SYRINGE IVP SCH ×3 (00:52→16:52)
[2021-08-07] MEDS: ACETAMINOPHEN 325 MG TABLET PO PRN ×2 (04:24→23:54)
[2021-08-07] MEDS: SODIUM CHLORIDE 0.9% 1,000 ML IV SCH ×3 (04:28→16:51)
[2021-08-07] MEDS: metroNIDAZOLE 500 MG/100 ML 500 MG/100 ML BAG IV SCH ×3 (04:31→20:44)
[2021-08-07] MEDS ORDERED: traMADol 50 MG TABLET PO PRN (07:20)
[2021-08-07 07:47] LABS: BASOPHILS # (AUTO) 0.1 10^3/uL (0.0-0.1); BASOPHILS % (AUTO) 0.5 %; EOSINOPHILS # (AUTO) 0.1 10^3/uL (0.0-0.7); HCT - HEMATOCRIT 32.1 % (37.0-47.0); HGB - HEMOGLOBIN 10.7 g/dL (12.0-16.0); LYMPHOCYTES # (AUTO) 2.1 10^3/uL (1.5-3.5); LYMPHOCYTES % (AUTO) 16.4 %; MEAN CORPUSCULAR HEMOGLOBIN 30.7 pg (27.0-31.0); MEAN CORPUSCULAR HGB CONC 33.3 g/dL (32.0-36.0); MEAN CORPUSCULAR VOLUME 92.2 fL (81.0-99.0); MONOCYTES # (AUTO) 1.3 10^3/uL (0.0-1.0); MONOCYTES % (AUTO) 10.3 %; NEUTROPHILS # (AUTO) 9.3 10^3/uL (1.5-6.6); NEUTROPHILS % (AUTO) 71.6 %; PLT - PLATELET COUNT 201 10^3/uL (130-450); RED BLOOD COUNT 3.48 10^6/uL (4.20-5.40); RED CELL DISTRIBUTION WIDTH 12.4 % (12.0-15.0)
[2021-08-07 07:53] LABS: CALCIUM 8.1 mg/dL (8.5-10.3); CREATININE 1.2 mg/dL (0.4-1.0); POTASSIUM 3.4 mmol/L (3.5-5.0)
[2021-08-07] MEDS: CIPROFLOXACIN 400 MG/200 ML 400 MG/200 ML BAG IV SCH ×2 (09:52→20:44)
--- NOTE | 2021-08-07 13:31 | PROVIDER PROGRESS NOTE ---
Assessment/Plan - Problem List (1) Colitis Assessment/Plan: Patient was admitted to the hospital yesterday after 3 days of nausea, vomiting, and diarrhea. Her admission WBC was 23.9. CT abd showed " acute colonic process which is not acute diverticulitis. There is diffuse inflammatory change and wall edema involving the entirety of the ascending colon, as well as the proximal sigmoid and distal half of the transverse colon. Consider infectious versus inflammatory versus ischemic etiologies". In the ED she was given 3 liters of fluid and one dose of Rocephin. She was changed to Cipro and Flagyl yesterday after abdominal CT results. WBC today is 13. Etiology is undetermined. Infectious versus inflammatory process. Today she denies nausea or vomiting and reports tolerating clear liquid diet. C. diff results are negative and stool cultures are pending. Ischemic bowel is unlikely due to absence of abd. pain. Plan: Continue clear liquid diet and consider advancing tomorrow if nausea, vomiting, and diarrhea improves. Continue IV hydration with NS at 100ml/hr Continue Ciprofloxacin 400mg IVPB twice daily and Flagyl 500mg IVPB three times daily. Continue to monitor CBC. (2) Dehydration Assessment/Plan: Patient was admitted to the hospital with nausea, vomiting, and diarrhea for 3 days. Upon admission her Creatinine was 1.2 then 1.4 with eGFR of 36. She was given 3L of fluid in the ED. Today her creatinine is 1.2 and her eGFR is 43. Plan: Continue with IV hydration NS at 100ml/hr. Continue to monitor BMP daily. (3) Trigeminal neuralgia of right side of face Assessment/Plan: Patient has a history trigeminal neuralgia and reports taking Carbamazepine 100mg PO twice daily. Today she reports having numbness and tingling to the right side of her face and would like to resume her medication. Medication was confirmed by her daughter, Singh. Plan: Resume Carbamzepine 100mg PO twice daily. (4) Hyperlipidemia Assessment/Plan: Patient has a history of hyperlipidemia and takes simvastatin 40mg PO daily. Plan: Will resume home Simvastatin 40mg PO daily. (5) Depression Assessment/Plan: Patient has a history of depression and takes Citalopram 40mg po daily. Plan: Resume home Citalopram 40mg PO daily. (6) GERD (gastroesophageal reflux disease) Assessment/Plan: Patient has history of GERD and takes omeprazole 20mg PO daily. She denies eipgastic pain today. Plan: Resume home Omeprazole 20mg PO daily. (7) Urinary incontinence Assessment/Plan: Patient has has a history of urinary incontinence and takes oxybutynin 20mg PO daily. Plan: Resume home oxybutynin 20mg PO daily. - Current Meds Current Meds: Current Medications Generic Name Dose Route Start Last Admin Trade Name Freq PRN Reason Stop Dose Admin Acetaminophen 650 mg 08/06/21 20:44 08/07/21 04:24 Acetaminophen 325 Mg Tablet PO 650 mg Q4HR PRN Administration Pain 1 to 4 Sodium Chloride 1,000 mls @ 100 mls/hr 08/06/21 21:00 08/07/21 09:53 Normal Saline 0.9% IV 100 mls/hr .Q10H VERNELL Administration Ciprofloxacin 400 mg in 200 mls @ 200 mls/hr 08/06/21 21:00 08/07/21 10:55 Cipro 400 Mg/200 Ml IV Infused Q12H VERNELL Infusion Metronidazole 500 mg in 100 mls @ 100 mls/hr 08/06/21 21:00 08/07/21 13:08 Flagyl 500 Mg/100 Ml IV 100 mls/hr Q8H VERNELL Administration Sodium Chloride 10 ml 08/07/21 01:00 08/07/21 09:52 Sodium Chloride Flush 0.9% 10 Ml Syringe IVP 10 ml 0100,0900,1700 VERNELL Administration - Lab Result Fish Bone Diagrams: 08/07/21 07:38 08/07/21 07:38 Subjective - Subjective Patient Reports: Other (Patient sitting up in bed eating clear liquid breakfast. Patient reports intermittent numbness and tingling to left side of face over past several months.) Nursing Reports: No Complaints Objective Vital Signs: Vital Signs - 24 hr 08/06/21 08/06/21 08/06/21 13:35 19:11 21:53 Temperature 37.2 C 36.8 C Heart Rate 111 H 97 Heart Rate [ 88 Radial] Respiratory 23 14 18 Rate Blood Pressure 116/57 L Blood Pressure 123/64 [Right Brachial artery] Blood Pressure [Right Radial artery] O2 Saturation 95 99 95 08/06/21 08/07/21 08/07/21 23:20 04:08 08:00 Temperature 36.6 C 36.7 C 36.8 C Heart Rate Heart Rate [ 89 92 73 Radial] Respiratory 18 20 16 Rate Blood Pressure Blood Pressure 111/73 130/74 [Right Brachial artery] Blood Pressure 125/62 [Right Radial artery] O2 Saturation 96 94 95 08/07/21 13:00 Temperature 36.6 C Heart Rate Heart Rate [ 88 Radial] Respiratory 22 Rate Blood Pressure Blood Pressure [Right Brachial artery] Blood Pressure 110/81 H [Right Radial artery] O2 Saturation 96 Oxygen O2 Source Room air I&O (Last 24 Hrs): Intake and Output Totals x24h 08/05/21 08/06/21 08/07/21 23:59 23:59 23:59 Intake Total 2883.167 1838.334 Output Total 100 Balance 2783.167 1838.334 General: Alert, Oriented x3, Cooperative, No acute distress Neuro: Alert, Oriented Times 3, Other (Patient has decreased sensation to left side of face. CN 2-4 and 6- 12 intact. Trigeminal motor fuction remains intact.) Cardiovascular: Regular rate, Normal S1, Normal S2, No murmurs Respiratory: Chest non-tender, No respiratory distress, Breath sounds nml Abdomen: Normal bowel sounds, Soft, No tenderness Extremities: No clubbing, No cyanosis, No edema - Results Results: Laboratory Results WBC 13.0 x10^3/uL (4.8-10.8) H 08/07/21 07:38 RBC 3.48 10^6/uL (4.20-5.40) L 08/07/21 07:38 Hgb 10.7 g/dL (12.0-16.0) L 08/07/21 07:38 Hct 32.1 % (37.0-47.0) L 08/07/21 07:38 MCV 92.2 fL (81.0-99.0) 08/07/21 07:38 MCH 30.7 pg (27.0-31.0) 08/07/21 07:38 MCHC 33.3 g/dL (32.0-36.0) 08/07/21 07:38 RDW 12.4 % (12.0-15.0) 08/07/21 07:38 Plt Count 201 10^3/uL (130-450) 08/07/21 07:38 MPV 11.0 fL (7.9-10.8) H 08/07/21 07:38 Neut # (Auto) 9.3 10^3/uL (1.5-6.6) H 08/07/21 07:38 Lymph # (Auto) 2.1 10^3/uL (1.5-3.5) 08/07/21 07:38 [place] # (Auto) 1.3 10^3/uL (0.0-1.0) H 08/07/21 07:38 Eos # (Auto) 0.1 10^3/uL (0.0-0.7) 08/07/21 07:38 Baso # (Auto) 0.1 10^3/uL (0.0-0.1) 08/07/21 07:38 Absolute Nucleated RBC 0.00 x10^3/uL 08/07/21 07:38 Total Counted 100 08/06/21 21:20 Band Neuts % (Manual) 7 % (0-10) 08/06/21 21:20 Abnorm Lymph % (Manual) 0 % 08/06/21 21:20 Nucleated RBC % 0.0 /100WBC 08/07/21 07:38 Neutrophils # (Manual) 16.7 10^3/uL (1.5-6.6) H 08/06/21 21:20 Lymphocytes # (Manual) 1.0 10^3/uL (1.5-3.5) L 08/06/21 21:20 Monocytes # (Manual) 2.0 10^3/uL (0.0-1.0) H 08/06/21 21:20 Eosinophils # (Manual) 0.0 10^3/uL (0-0.7) 08/06/21 21:20 Basophils # (Manual) 0.0 10^3/uL (0-0.1) 08/06/21 21:20 Differential Comment MANUAL DIFFERENTIAL 08/06/21 21:20 Manual Slide Review Indicated 08/06/21 14:20 WBC Morphology NORMAL APPEARANCE (NORMAL) 08/06/21 14:20 Platelet Estimate NORMAL (130-450,000) (NORMAL) 08/06/21 21:20 Platelet Morphology NORMAL APPEARANCE (NORMAL) 08/06/21 14:20 RBC Morph Micro Appear NORMAL APPEARANCE (NORMAL) 08/06/21 21:20 Sodium 141 mmol/L (135-145) 08/07/21 07:38 Potassium 3.4 mmol/L (3.5-5.0) L 08/07/21 07:38 Chloride 108 mmol/L (101-111) 08/07/21 07:38 Carbon Dioxide 20 mmol/L (21-32) L 08/07/21 07:38 Anion Gap 13.0 (6-13) 08/07/21 07:38 BUN 15 mg/dL (6-20) 08/07/21 07:38 Creatinine 1.2 mg/dL (0.4-1.0) H 08/07/21 07:38 Estimated GFR (MDRD) 43 (>89) L 08/07/21 07:38 Glucose 128 mg/dL (70-100) H 08/07/21 07:38 Calcium 8.1 mg/dL (8.5-10.3) L 08/07/21 07:38 Phosphorus 2.5 mg/dL (2.5-4.6) 08/06/21 14:20 Magnesium 2.0 mg/dL (1.7-2.8) 08/06/21 14:20 Total Bilirubin 0.6 mg/dL (0.2-1.0) 08/06/21 14:20 AST 24 IU/L (10-42) 08/06/21 14:20 ALT 16 IU/L (10-60) 08/06/21 14:20 Alkaline Phosphatase 68 IU/L (42-121) 08/06/21 14:20 Total Protein 6.4 g/dL (6.7-8.2) L 08/06/21 14:20 Albumin 3.8 g/dL (3.2-5.5) 08/06/21 14:20 Globulin 2.6 g/dL (2.1-4.2) 08/06/21 14:20 Albumin/Globulin Ratio 1.5 (1.0-2.2) 08/06/21 14:20 Lipase 19 U/L (22-51) L 08/06/21 14:20 Urine Color YELLOW 08/06/21 15:10 Urine Clarity CLEAR (CLEAR) 08/06/21 15:10 Urine pH 6.5 PH (5.0-7.5) 08/06/21 15:10 Ur Specific [place] 1.015 (1.002-1.030) 08/06/21 15:10 Urine Protein 100 mg/dL (NEGATIVE) H 08/06/21 15:10 Urine Glucose (UA) 250 mg/dL (NEGATIVE) H 08/06/21 15:10 Urine Ketones TRACE mg/dL (NEGATIVE) 08/06/21 15:10 Urine Occult Blood NEGATIVE (NEGATIVE) 08/06/21 15:10 Urine Nitrite NEGATIVE (NEGATIVE) 08/06/21 15:10 Urine Bilirubin NEGATIVE (NEGATIVE) 08/06/21 15:10 Urine Urobilinogen 1 (NORMAL) E.U./dL (NORMAL) 08/06/21 15:10 Ur Leukocyte Esterase NEGATIVE (NEGATIVE) 08/06/21 15:10 Urine RBC 0-5 /HPF (0-5) 08/06/21 15:10 Urine WBC 6-10 /HPF (0-5) H 08/06/21 15:10 Ur Squamous Epith Cells FEW Squamous (<= Few) 08/06/21 15:10 Urine Bacteria Few /HPF (None Seen) 08/06/21 15:10 Ur Microscopic Review INDICATED 08/06/21 15:10 Urine Culture Comments NOT INDICATED 08/06/21 15:10 Nasal Adenovirus (PCR) NOT DETECTED 08/06/21 19:44 Nasal B. parapertussis DNA (PCR) NOT DETECTED 08/06/21 19:44 Nasal Coronavir 229E PCR NOT DETECTED 08/06/21 19:44 Nasal Coronavir HKU1 PCR NOT DETECTED 08/06/21 19:44 Nasal Coronavir NL63 PCR NOT DETECTED 08/06/21 19:44 Nasal Coronavir OC43 PCR NOT DETECTED 08/06/21 19:44 Nasal Enterovir/Rhinovir PCR NOT DETECTED 08/06/21 19:44 Nasal Influenza B PCR NOT DETECTED 08/06/21 19:44 Nasal Influenza A PCR NOT DETECTED 08/06/21 19:44 Nasal Parainfluen 1 PCR NOT DETECTED 08/06/21 19:44 Nasal Parainfluen 2 PCR NOT DETECTED 08/06/21 19:44 Nasal Parainfluen 3 PCR NOT DETECTED 08/06/21 19:44 Nasal Parainfluen 4 PCR NOT DETECTED 08/06/21 19:44 Nasal RSV (PCR) NOT DETECTED 08/06/21 19:44 Nasal B.pertussis DNA PCR NOT DETECTED 08/06/21 19:44 Nasal C.pneumoniae (PCR) NOT DETECTED 08/06/21 19:44 [place] Human Metapneumo PCR NOT DETECTED 08/06/21 19:44 Nasal M.pneumoniae (PCR) NOT DETECTED 08/06/21 19:44 Nasal SARS-CoV-2 (PCR) NOT DETECTED 08/06/21 19:44 Stl C. diff Tox B Gene NEGATIVE (NEGATIVE) 08/06/21 22:40 ABX Reporting Has patient been on IV antibiotics over the past 48 hours?: Yes
--- NOTE | 2021-08-07 13:45 | PHARMACY PROGRESS NOTE ---
- Best Possible Medication History Admit Date and Time: 08/06/212043 Processed by: Pharmacy Medication History completed: Yes Secondary Source(s): Other family member, Insurance records As the person ultimately responsible for medication therapy, providers are able to order a medication from an existing home medication list in [facility] via the "Reconcile Routine" prior to Confirmation of that medication by support assistant. Such practice is discouraged except when the physician, in their clinical judgment, deems that a medical need exists for a medication without regard to previous use.
[2021-08-07] MEDS ORDERED: HYDROXYZINE HCL 10 MG PO PRN (16:27)
[2021-08-07] MEDS ORDERED: ALPRAZolam 0.25 MG TABLET PO PRN (16:27)
[2021-08-07] MEDS: diphenhydrAMINE 25 MG CAPSULE PO PRN (16:50)
[2021-08-07] MEDS: traMADol 50 MG TABLET PO PRN (16:51)
[2021-08-07] MEDS: MELOXICAM 7.5 MG TABLET PO PRN (19:43)
[2021-08-07] MEDS: GABAPENTIN 300 MG CAPSULE PO SCH (20:43)
[2021-08-07] MEDS: ATORVASTATIN 40 MG TABLET PO SCH (20:43)
[2021-08-07] MEDS: OXYBUTYNIN 5MG TABLET PO SCH (20:44)
[2021-08-07] MEDS: carBAMazepine 200 MG TABLET PO SCH (20:44)
[2021-08-07] MEDS: traZODone 50 MG TABLET PO SCH (20:44)
[2021-08-08] MEDS: SODIUM CHLORIDE 0.9% 1,000 ML IV SCH ×2 (03:02→16:01)
[2021-08-08] MEDS: SODIUM CHLORIDE FLUSH 0.9% 10 ML SYRINGE IVP SCH ×3 (03:02→16:02)
[2021-08-08 04:55] LABS: BASOPHILS # (AUTO) 0.1 10^3/uL (0.0-0.1); BASOPHILS % (AUTO) 0.7 %; EOSINOPHILS # (AUTO) 0.4 10^3/uL (0.0-0.7); EOSINOPHILS % (AUTO) 4.7 %; HCT - HEMATOCRIT 31.7 % (37.0-47.0); HGB - HEMOGLOBIN 10.4 g/dL (12.0-16.0); LYMPHOCYTES # (AUTO) 1.8 10^3/uL (1.5-3.5); LYMPHOCYTES % (AUTO) 19.9 %; MEAN CORPUSCULAR HEMOGLOBIN 30.5 pg (27.0-31.0); MEAN CORPUSCULAR HGB CONC 32.8 g/dL (32.0-36.0); MONOCYTES # (AUTO) 0.9 10^3/uL (0.0-1.0); MONOCYTES % (AUTO) 10.2 %; NEUTROPHILS # (AUTO) 5.8 10^3/uL (1.5-6.6); NEUTROPHILS % (AUTO) 64.4 %; PLT - PLATELET COUNT 197 10^3/uL (130-450); RED BLOOD COUNT 3.41 10^6/uL (4.20-5.40); RED CELL DISTRIBUTION WIDTH 12.4 % (12.0-15.0)
[2021-08-08] MEDS: metroNIDAZOLE 500 MG/100 ML 500 MG/100 ML BAG IV SCH ×3 (04:59→21:33)
[2021-08-08 05:04] LABS: CALCIUM 8.3 mg/dL (8.5-10.3); CREATININE 0.9 mg/dL (0.4-1.0); POTASSIUM 3.1 mmol/L (3.5-5.0)
[2021-08-08] MEDS: PANTOPRAZOLE 40 MG TABLET PO SCH (06:21)
[2021-08-08] MEDS: ACETAMINOPHEN 325 MG TABLET PO PRN (08:30)
[2021-08-08] MEDS: carBAMazepine 200 MG TABLET PO SCH ×2 (08:30→20:02)
[2021-08-08] MEDS: LORATADINE 10 MG TABLET PO SCH (08:30)
[2021-08-08] MEDS: GABAPENTIN 300 MG CAPSULE PO SCH ×2 (08:30→20:02)
[2021-08-08] MEDS: DULoxetine 30 MG CAPSULE PO SCH (08:30)
[2021-08-08] MEDS: OXYBUTYNIN 5MG TABLET PO SCH ×2 (08:30→20:02)
[2021-08-08] MEDS: CIPROFLOXACIN 400 MG/200 ML 400 MG/200 ML BAG IV SCH ×2 (08:35→20:06)
--- NOTE | 2021-08-08 09:08 | PROVIDER PROGRESS NOTE ---
Assessment/Plan - Problem List (1) Colitis Assessment/Plan: Patient was admitted to the hospital on 08/06/21 after 3 days of nausea, vomiting, and diarrhea. Her admission WBC was 23.[address] abd showed " acute colonic process which is not acute diverticulitis. There is diffuse inflammatory change and wall edema involving the entirety of the ascending colon, as well as the proximal sigmoid and distal half of the transverse colon. Consider infectious versus inflammatory versus ischemic etiologies". In the ED she was given 3 liters of fluid and one dose of Rocephin. She was changed to Cipro and Flagyl on 08/06/[address] results. WBC today is 9. Etiology is is most likely an inflammatory process versus infectious. Today she continues to deny nausea or vomiting and reports having a small soft brown bowel movement. She continues to tolerated her pureed diet well. C. diff results are negative. Ischemic bowel is unlikely due to absence of abd. pain. Plan: Advance diet to soft for breakfast on . Continue IV hydration with NS at 100ml/hr. Continue Ciprofloxacin 400mg IVPB twice daily and Flagyl 500mg IVPB three times daily and discontinue prior to discharge. Continue to monitor CBC. Possible discharge home tomorrow. (2) Dehydration Assessment/Plan: Patient was admitted to the hospital with nausea, vomiting, and diarrhea for 3 days. Upon admission her Creatinine was 1.2 then 1.4 with eGFR of 36. She was given 3L of fluid in the ED. Today her creatinine is 0.9 and her eGFR is 60. Her Hgb is 10.4 today from 10.7 yesterday, suggesting she continues to be dehydrated. Today she is positive 1500mls with 1200ml of urine output. Plan: Continue with IV hydration NS at 100ml/hr and discontinue tomorrow. Continue to monitor BMP daily. (3) Trigeminal neuralgia of right side of face Assessment/Plan: Patient has a history trigeminal neuralgia and reports taking Carbamazepine 100mg PO twice daily. Today she reports her facial numbness and tingling has resolved after resuming her home medication yesterday. Plan: Continue Carbamzepine 100mg PO twice daily. (4) Hyperlipidemia Assessment/Plan: Patient has a history of hyperlipidemia and takes Atorvostatin 40mg PO daily. Plan: Continue with Atrovostatin 40mg PO daily while inpatient. (5) Depression Assessment/Plan: Patient has a history of depression and takes Citalopram 40mg po daily. Plan: Continue Citalopram 40mg PO daily. (6) GERD (gastroesophageal reflux disease) Assessment/Plan: Patient has history of GERD and takes omeprazole 20mg PO daily. She continues to deny eipgastic pain today. Plan: Resume home Omeprazole 20mg PO daily. (7) Urinary incontinence Assessment/Plan: Patient has has a history of urinary incontinence and takes oxybutynin 20mg PO daily. Plan: Continue oxybutynin 20mg PO daily. - Current Meds Current Meds: Current Medications Generic Name Dose Route Start Last Admin Trade Name Freq PRN Reason Stop Dose Admin Acetaminophen 650 mg 08/06/21 20:44 08/08/21 08:30 Acetaminophen 325 Mg Tablet PO 650 mg Q4HR PRN Administration Pain 1 to 4 Atorvastatin Calcium 40 mg 08/07/21 21:00 08/07/21 20:43 Atorvastatin 40 Mg Tablet PO 40 mg HS VERNELL Administration Carbamazepine 100 mg 08/07/21 21:00 08/08/21 08:30 Carbamazepine 200 Mg Tablet PO 100 mg BID VERNELL Administration Diphenhydramine HCl 25 mg 08/07/21 16:28 08/07/21 16:50 Diphenhydramine 25 Mg Capsule PO 25 mg DAILY PRN Administration ITCHING Duloxetine HCl 30 mg 08/08/21 09:00 08/08/21 08:30 Duloxetine 30 Mg Capsule PO 30 mg DAILY VERNELL Administration Gabapentin 600 mg 08/07/21 21:00 08/08/21 08:30 Gabapentin 300 Mg Capsule PO 600 mg BID VERNELL Administration Sodium Chloride 1,000 mls @ 100 mls/hr 08/06/21 21:00 08/08/21 08:35 Normal Saline 0.9% IV 0 mls/hr .Q10H VERNELL Infusion Ciprofloxacin 400 mg in 200 mls @ 200 mls/hr 08/06/21 21:00 08/08/21 08:35 Cipro 400 Mg/200 Ml IV 200 mls/hr Q12H VERNELL Administration Metronidazole 500 mg in 100 mls @ 100 mls/hr 08/06/21 21:00 08/08/21 06:05 Flagyl 500 Mg/100 Ml IV Infused Q8H VERNELL Infusion Loratadine 10 mg 08/08/21 09:00 08/08/21 08:30 Loratadine 10 Mg Tablet PO 10 mg DAILY VERNELL Administration Meloxicam 15 mg 08/07/21 18:13 08/07/21 19:43 Meloxicam 7.5 Mg Tablet PO 15 mg DAILY PRN Administration PAIN Oxybutynin Chloride 10 mg 08/07/21 21:00 08/08/21 08:30 Oxybutynin 5mg Tablet PO 10 mg BID VERNELL Administration Pantoprazole Sodium 40 mg 08/08/21 07:00 08/08/21 06:21 Pantoprazole 40 Mg Tablet PO 40 mg QDAC VERNELL Administration Sodium Chloride 10 ml 08/07/21 01:00 08/08/21 08:31 Sodium Chloride Flush 0.9% 10 Ml Syringe IVP Not Given 0100,0900,1700 VERNELL Tramadol HCl 50 mg 08/07/21 16:27 08/07/21 16:51 Tramadol 50 Mg Tablet PO 50 mg DAILY PRN Administration PAIN Trazodone HCl 50 mg 08/07/21 21:00 08/07/21 20:44 Trazodone 50 Mg Tablet PO 50 mg QPM VERNELL Administration - Lab Result Fish Bone Diagrams: 08/08/21 04:20 08/08/21 04:20 Subjective - Subjective Patient Reports: Feeling Better, Resting Comfortably, No Complaints, Other (Reports feeling better today. No nausea or vomiting. Had a small formed bowel movement. Denies facial pain.) Nursing Reports: No Complaints Objective Vital Signs: Vital Signs - 24 hr 08/07/21 08/07/21 08/07/21 13:00 16:15 19:27 Temperature 36.6 C 36.4 C L 36.8 C Heart Rate [ 88 82 93 Radial] Respiratory 22 16 18 Rate Blood Pressure 155/62 H [Right Brachial artery] Blood Pressure 110/81 H 160/60 H [Right Radial artery] O2 Saturation 96 96 97 08/08/21 08/08/21 08/08/21 00:37 03:48 07:33 Temperature 37.0 C 36.4 C L 36.8 C Heart Rate [ 96 99 89 Radial] Respiratory 18 18 19 Rate Blood Pressure 152/68 H 118/90 H [Right Brachial artery] Blood Pressure 159/92 H [Right Radial artery] O2 Saturation 99 97 97 Oxygen O2 Source Room air I&O (Last 24 Hrs): Intake and Output Totals x24h 03/24/22 03/25/22 03/26/22 23:59 23:59 23:59 Intake Total 2883.167 4360.001 1460 Output Total 100 400 600 Balance 2783.167 3960.001 860 General: Alert, Oriented x3, Cooperative, No acute distress Neuro: Alert, CN 2-12 Grossly Intact, Oriented Times 3 Cardiovascular: Regular rate, Normal S1, Normal S2, No murmurs Respiratory: Chest non-tender, No respiratory distress, Breath sounds nml Abdomen: Normal bowel sounds, Soft, No tenderness, No hepatospenomegaly Extremities: No clubbing, No cyanosis, No edema, Normal pulses Skin: No rashes - Results Results: Laboratory Results WBC 9.0 x10^3/uL (4.8-10.8) 08/08/21 04:20 RBC 3.41 10^6/uL (4.20-5.40) L 08/08/21 04:20 Hgb 10.4 g/dL (12.0-16.0) L 08/08/21 04:20 Hct 31.7 % (37.0-47.0) L 08/08/21 04:20 MCV 93.0 fL (81.0-99.0) 08/08/21 04:20 MCH 30.5 pg (27.0-31.0) 08/08/21 04:20 MCHC 32.8 g/dL (32.0-36.0) 08/08/21 04:20 RDW 12.4 % (12.0-15.0) 08/08/21 04:20 Plt Count 197 10^3/uL (130-450) 08/08/21 04:20 MPV 11.0 fL (7.9-10.8) H 08/08/21 04:20 Neut # (Auto) 5.8 10^3/uL (1.5-6.6) 08/08/21 04:20 Lymph # (Auto) 1.8 10^3/uL (1.5-3.5) 08/08/21 04:20 [place] # (Auto) 0.9 10^3/uL (0.0-1.0) 08/08/21 04:20 Eos # (Auto) 0.4 10^3/uL (0.0-0.7) 08/08/21 04:20 Baso # (Auto) 0.1 10^3/uL (0.0-0.1) 08/08/21 04:20 Absolute Nucleated RBC 0.00 x10^3/uL 08/08/21 04:20 Total Counted 100 08/06/21 21:20 Band Neuts % (Manual) 7 % (0-10) 08/06/21 21:20 Abnorm Lymph % (Manual) 0 % 08/06/21 21:20 Nucleated RBC % 0.0 /100WBC 08/08/21 04:20 Neutrophils # (Manual) 16.7 10^3/uL (1.5-6.6) H 08/06/21 21:20 Lymphocytes # (Manual) 1.0 10^3/uL (1.5-3.5) L 08/06/21 21:20 Monocytes # (Manual) 2.0 10^3/uL (0.0-1.0) H 08/06/21 21:20 Eosinophils # (Manual) 0.0 10^3/uL (0-0.7) 08/06/21 21:20 Basophils # (Manual) 0.0 10^3/uL (0-0.1) 08/06/21 21:20 Differential Comment MANUAL DIFFERENTIAL 08/06/21 21:20 Manual Slide Review Indicated 08/06/21 14:20 WBC Morphology NORMAL APPEARANCE (NORMAL) 08/06/21 14:20 Platelet Estimate NORMAL (130-450,000) (NORMAL) 08/06/21 21:20 Platelet Morphology NORMAL APPEARANCE (NORMAL) 08/06/21 14:20 RBC Morph Micro Appear NORMAL APPEARANCE (NORMAL) 08/06/21 21:20 Sodium 140 mmol/L (135-145) 08/08/21 04:20 Potassium 3.1 mmol/L (3.5-5.0) L 08/08/21 04:20 Chloride 109 mmol/L (101-111) 08/08/21 04:20 Carbon Dioxide 22 mmol/L (21-32) 08/08/21 04:20 Anion Gap 9.0 (6-13) 08/08/21 04:20 BUN 9 mg/dL (6-20) 08/08/21 04:20 Creatinine 0.9 mg/dL (0.4-1.0) 08/08/21 04:20 Estimated GFR (MDRD) 60 (>89) L 08/08/21 04:20 Glucose 110 mg/dL (70-100) H 08/08/21 04:20 Calcium 8.3 mg/dL (8.5-10.3) L 08/08/21 04:20 Phosphorus 2.5 mg/dL (2.5-4.6) 08/06/21 14:20 Magnesium 2.0 mg/dL (1.7-2.8) 08/06/21 14:20 Total Bilirubin 0.6 mg/dL (0.2-1.0) 08/06/21 14:20 AST 24 IU/L (10-42) 08/06/21 14:20 ALT 16 IU/L (10-60) 08/06/21 14:20 Alkaline Phosphatase 68 IU/L (42-121) 08/06/21 14:20 Total Protein 6.4 g/dL (6.7-8.2) L 08/06/21 14:20 Albumin 3.8 g/dL (3.2-5.5) 08/06/21 14:20 Globulin 2.6 g/dL (2.1-4.2) 08/06/21 14:20 Albumin/Globulin Ratio 1.5 (1.0-2.2) 08/06/21 14:20 Lipase 19 U/L (22-51) L 08/06/21 14:20 Urine Color YELLOW 08/06/21 15:10 Urine Clarity CLEAR (CLEAR) 08/06/21 15:10 Urine pH 6.5 PH (5.0-7.5) 08/06/21 15:10 Ur Specific [place] 1.015 (1.002-1.030) 08/06/21 15:10 Urine Protein 100 mg/dL (NEGATIVE) H 08/06/21 15:10 Urine Glucose (UA) 250 mg/dL (NEGATIVE) H 08/06/21 15:10 Urine Ketones TRACE mg/dL (NEGATIVE) 08/06/21 15:10 Urine Occult Blood NEGATIVE (NEGATIVE) 08/06/21 15:10 Urine Nitrite NEGATIVE (NEGATIVE) 08/06/21 15:10 Urine Bilirubin NEGATIVE (NEGATIVE) 08/06/21 15:10 Urine Urobilinogen 1 (NORMAL) E.U./dL (NORMAL) 08/06/21 15:10 Ur Leukocyte Esterase NEGATIVE (NEGATIVE) 08/06/21 15:10 Urine RBC 0-5 /HPF (0-5) 08/06/21 15:10 Urine WBC 6-10 /HPF (0-5) H 08/06/21 15:10 Ur Squamous Epith Cells FEW Squamous (<= Few) 08/06/21 15:10 Urine Bacteria Few /HPF (None Seen) 08/06/21 15:10 Ur Microscopic Review INDICATED 08/06/21 15:10 Urine Culture Comments NOT INDICATED 08/06/21 15:10 Nasal Adenovirus (PCR) NOT DETECTED 08/06/21 19:44 Nasal B. parapertussis DNA (PCR) NOT DETECTED 08/06/21 19:44 Nasal Coronavir 229E PCR NOT DETECTED 08/06/21 19:44 Nasal Coronavir HKU1 PCR NOT DETECTED 08/06/21 19:44 Nasal Coronavir NL63 PCR NOT DETECTED 08/06/21 19:44 Nasal Coronavir OC43 PCR NOT DETECTED 08/06/21 19:44 Nasal Enterovir/Rhinovir PCR NOT DETECTED 08/06/21 19:44 Nasal Influenza B PCR NOT DETECTED 08/06/21 19:44 Nasal Influenza A PCR NOT DETECTED 08/06/21 19:44 Nasal Parainfluen 1 PCR NOT DETECTED 08/06/21 19:44 Nasal Parainfluen 2 PCR NOT DETECTED 08/06/21 19:44 Nasal Parainfluen 3 PCR NOT DETECTED 08/06/21 19:44 Nasal Parainfluen 4 PCR NOT DETECTED 08/06/21 19:44 Nasal RSV (PCR) NOT DETECTED 08/06/21 19:44 Nasal B.pertussis DNA PCR NOT DETECTED 08/06/21 19:44 Nasal C.pneumoniae (PCR) NOT DETECTED 08/06/21 19:44 [place] Human Metapneumo PCR NOT DETECTED 08/06/21 19:44 Nasal M.pneumoniae (PCR) NOT DETECTED 08/06/21 19:44 Nasal SARS-CoV-2 (PCR) NOT DETECTED 08/06/21 19:44 Stl C. diff Tox B Gene NEGATIVE (NEGATIVE) 08/06/21 22:40 ABX Reporting Has patient been on IV antibiotics over the past 48 hours?: Yes
[2021-08-08] MEDS: POTASSIUM CHLOR 10 MEQ/100 ML 10 MEQ/100 ML BAG IV SCH ×4 (09:36→12:43)
[2021-08-08] MEDS: diphenhydrAMINE 25 MG CAPSULE PO PRN (10:42)
[2021-08-08] MEDS: traMADol 50 MG TABLET PO PRN (10:42)
[2021-08-08] MEDS: MELOXICAM 7.5 MG TABLET PO PRN (16:01)
[2021-08-08] MEDS: traZODone 50 MG TABLET PO SCH (20:02)
[2021-08-08] MEDS: ATORVASTATIN 40 MG TABLET PO SCH (20:02)
[2021-08-09] MEDS: SODIUM CHLORIDE 0.9% 1,000 ML IV SCH (03:44)
[2021-08-09] MEDS: SODIUM CHLORIDE FLUSH 0.9% 10 ML SYRINGE IVP SCH ×2 (03:45→08:10)
[2021-08-09] MEDS: metroNIDAZOLE 500 MG/100 ML 500 MG/100 ML BAG IV SCH (05:00)
[2021-08-09 05:24] LABS: BASOPHILS # (AUTO) 0.1 10^3/uL (0.0-0.1); BASOPHILS % (AUTO) 0.9 %; EOSINOPHILS # (AUTO) 0.5 10^3/uL (0.0-0.7); EOSINOPHILS % (AUTO) 6.4 %; HCT - HEMATOCRIT 30.4 % (37.0-47.0); HGB - HEMOGLOBIN 10.2 g/dL (12.0-16.0); LYMPHOCYTES # (AUTO) 1.8 10^3/uL (1.5-3.5); LYMPHOCYTES % (AUTO) 23.3 %; MEAN CORPUSCULAR HEMOGLOBIN 30.2 pg (27.0-31.0); MEAN CORPUSCULAR HGB CONC 33.6 g/dL (32.0-36.0); MEAN CORPUSCULAR VOLUME 89.9 fL (81.0-99.0); MONOCYTES # (AUTO) 0.8 10^3/uL (0.0-1.0); NEUTROPHILS # (AUTO) 4.5 10^3/uL (1.5-6.6); PLT - PLATELET COUNT 202 10^3/uL (130-450); RED BLOOD COUNT 3.38 10^6/uL (4.20-5.40); RED CELL DISTRIBUTION WIDTH 12.4 % (12.0-15.0); WHITE BLOOD COUNT 7.6 x10^3/uL (4.8-10.8)
[2021-08-09 05:29] LABS: CALCIUM 8.4 mg/dL (8.5-10.3); CREATININE 0.7 mg/dL (0.4-1.0); POTASSIUM 3.3 mmol/L (3.5-5.0)
[2021-08-09] MEDS: PANTOPRAZOLE 40 MG TABLET PO SCH (06:23)
[2021-08-09] MEDS: ACETAMINOPHEN 325 MG TABLET PO PRN (07:20)
[2021-08-09] MEDS: OXYBUTYNIN 5MG TABLET PO SCH (08:09)
[2021-08-09] MEDS: GABAPENTIN 300 MG CAPSULE PO SCH (08:09)
[2021-08-09] MEDS: carBAMazepine 200 MG TABLET PO SCH (08:09)
[2021-08-09] MEDS: LORATADINE 10 MG TABLET PO SCH (08:09)
[2021-08-09] MEDS: DULoxetine 30 MG CAPSULE PO SCH (08:10)
[2021-08-09] MEDS: CIPROFLOXACIN 400 MG/200 ML 400 MG/200 ML BAG IV SCH (08:17)
[2021-08-09] MEDS ORDERED: POTASSIUM CHLORIDE 20 MEQ TABLET PO ONE (09:16)
--- NOTE | 2021-08-09 10:39 | DISCHARGE SUMMARY ---
Discharge Summary Admit Date: 08/06/21 Discharge Date: 08/09/21 Discharging Provider: Dr. Tapia Primary Care Provider: Dr. Brennen Driver Code Status: Attempt Resuscitation Condition at Discharge: Stable Discharge Disposition: 01 Home, Self Care - DIAGNOSES Admission Diagnoses: (1) Colitis (2) Dehydration (3) Hyperlipidemia (4) Depression (5) GERD (gastroesophageal reflux disease) (6) Urinary incontinence - HPI History of Present Illness: From the admission H&P from Dr. Heydi Rodrigez: Patient is an 86-year-old female who presented to the ED with complaint of nausea, vomiting and diarrhea. This has been going on for the past 3 to 4 days. During this time she has not been taking anything significantly by mouth. As a result she has become significantly weak. Her daughter called EMS because patient was unable to ambulate. She denies eating anything bad or being around anybody sick. In the ED work-up included CBC which showed a WBC of 23.9. CT abdomen/pelvis showed an acute colonic process which was not acute diverticulitis. There was diffuse inflammatory changes and wall edema involving the entirety of the ascending colon as well as the proximal sigmoid and distal half of the transverse colon. It raised the possibility of an infectious versus inflammatory versus ischemic etiology. At bedside she denies chest pain, dyspnea, abdominal pain, fever or chills. As a result of the patient's symptoms she was presented for admission for further treatment. - HOSPITAL COURSE Hospital Course: (1) Colitis The patient was admitted to the hospital on 08/06/21 after 3 days of nausea, vomiting, and diarrhea. Her admission WBC was 23.9 that normalized 13.0>> 9 >> 7.6. Admission CT abd showed " acute colonic process which is not acute divert iculitis. There is diffuse inflammatory change and wall edema involving the entirety of the ascending colon, as well as the proximal sigmoid and distal half of the transverse colon. Consider infectious versus inflammatory versus ischemic etiologies". She was started on Cipro and Flagyl after the CT for a total of 3 days. Her colitis was treated with bowel rest/ clear liquid diet and IV fluids. She was free of nausea, vomiting, diarrhea, and abdominal pain for over 48 hours, and advanced to a soft low fiber diet. Her stool was negative for C-Diff. (2) Dehydration Upon admission to the hospital her Creatinine was 1.2. She was given NS @100ml/hr for hydration over 3 days. She had low urine output. Her Creatinine trended down 1.2>> 1.2 >> 0.9 >> 0.7. Upon discharge she was positive 10 Liters. (3) Trigeminal neuralgia of right side of face Patient has a history trigeminal neuralgia and reported taking Carbamazepine 100mg PO twice daily. She had complaints of facial numbness and tingling that resolved after resuming her Carbamzepine 100mg PO twice daily. (4) Hyperlipidemia Patient has a history of hyperlipidemia and takes Atorvostatin 40mg PO daily which was continued during hospitalization. (5) Depression Patient has a history of depression and takes Citalopram 40mg po daily which was continue during hospitalization. (6) GERD (gastroesophageal reflux disease) Patient has history of GERD and takes omeprazole 20mg PO daily which was continued during hospitalization. She denied eipgastic pain during hospitalization. (7) Urinary incontinence Patient has a history of urinary incontinence and takes oxybutynin 20mg PO daily which was continued during hospitalization. - ALLERGIES Allergies/Adverse Reactions: Allergies Allergy/AdvReac Type Severity Reaction Status Date / Time codeine AdvReac Itching Verified 08/06/21 13:49 - MEDICATIONS Home Medications: Ambulatory Orders Medication Instructions Recorded Confirmed Omeprazole 20 mg PO DAILY 08/16/15 08/07/21 traZODone [Desyrel] 50 mg PO Q24HR@2100 08/16/15 08/07/21 Oxybutynin Chloride [Ditropan Xl] 20 mg PO DAILY 09/28/20 08/07/21 hydrOXYzine HCL [Hydroxyzine HCl] 10 mg PO DAILY PRN 09/28/20 08/07/21 Alprazolam [Xanax] 0.25 mg PO BID PRN 08/07/21 08/07/21 Atorvastatin Calcium 40 mg PO HS 08/07/21 08/07/21 Cetirizine [ZyrTEC] 10 mg PO DAILY 08/07/21 08/07/21 DULoxetine [Cymbalta] 30 mg PO DAILY 08/07/21 08/07/21 Gabapentin 600 mg PO BID 08/07/21 08/07/21 Meloxicam, Submicronized 15 mg PO DAILY PRN 08/07/21 08/07/21 [Meloxicam] carBAMazepine [Carbamazepine ER] 100 mg PO BID 08/07/21 08/07/21 traMADol [Ultram] 50 mg PO DAILY PRN 08/07/21 08/07/21 - PHYSICAL EXAM AT DISCHARGE General Appearance: positive: No acute distress, Alert Eyes Bilateral: positive: Normal inspection, PERRL, EOMI Respiratory: positive: Chest non-tender, No respiratory distress, Breath sounds nml Cardiovascular: positive: Regular rate & rhythm, No murmur Peripheral Pulses: positive: 1+ Abdomen: positive: Non-tender, No organomegaly, Nml bowel sounds, No distention Skin: positive: Color nml, No rash, Warm, Dry Extremities: positive: Non-tender, Full ROM, Nml appearance, No pedal edema Neurologic/Psychiatric: positive: Oriented x3, Mood/affect nml - LABS Result Diagrams: 08/09/21 04:52 08/09/21 04:52 - TIME SPENT Time Spent in Discharge (Minutes): 45
--- NOTE | 2021-08-09 10:39 | Discharge Plan ---
Discharge Plan Problem Reviewed?: Yes Diet: Soft (Low Fiber Diet) Activity Restrictions: No Restrictions Shower Restrictions: No Driving Restrictions: No Assistance Devices: Cane Weight Bearing: Full Weight No Smoking: If you smoke, Please STOP! Call for help. Disposition: 01 Home, Self Care Condition: Stable Instruction Topics: Colitis Ulcerative Dc, Colitis Ulcerative Lifestyle Health Concerns: You were admitted to the hospital after 3 days of nausea, vomiting, and diarrhea. You were found to be dehydrated and had inflammation in your bowels called "Colitis". Your blood levels when you arrived at the hospital were also concerning for an infection so you were started on antibiotics that continued during your hospital stay. A sample of your stool was sent to the laboratory and was negative for infection. Today you have been free from nausea, vomiting, and diarrhea for 2 days. We gave your bowels rest for 24 hours and then slowly introduced clear liquids, full liquid, and now a soft low fiber diet. This helped you bowels to heal. Your b lood levels have also returned to normal and were most likely elevated from the inflammation in your bowels. You are being discharged without any new medications. Please resume the medications that you were taking before being admitted to the hospital. You should continue with a soft low fiber diet. If you begin to experience nausea, vomiting, or diarrhea again, give your bowels a rest for 12-24 hours and then slowly resume a clear liquid diet, then full liquid diet, and a soft low fiber diet. Keep a journal of the foods that trigger episode of nausea, vomiting, and diarrhea, then try to avoid these foods. Please see your Primary Care Provider in 2-4 weeks for a hospital follow-up visit. Plan of Treatment: As above Care Goals: Improvement in symptoms and stabilization are the goals. Assessment: The patient understands and is agreeable with the plan. Additional Instructions or Follow Up instructions: If you have new or worsening symptoms, call your Primary Care Provider for advice, or come to the ED. Follow-up with: Brennen Driver MD [Primary Care Provider] -
[2021-08-09 11:16] VITALS: BP 149/96
== END 2021-08-09 12:20 | disposition home or self-care (01) | DRG 392 ==
LOC: EDUNIT# → ED 13:34 → MS3 20:44
PROVIDERS: ADMIT Internal Medicine; ATTEND Internal Medicine
DX: K52.9 Noninfective gastroenteritis and colitis, unspecified (principal); N30.00 Acute cystitis without hematuria; E86.0 Dehydration; K57.30 Diverticulosis of large intestine without perforation or abscess without bleeding; Z91.81 History of falling; R53.1 Weakness; G50.0 Trigeminal neuralgia; Z20.822 Contact with and (suspected) exposure to COVID-19; E78.5 Hyperlipidemia, unspecified; F32.A Depression, unspecified; K21.9 Gastro-esophageal reflux disease without esophagitis; R32 Unspecified urinary incontinence
CPT/HCPCS: 36415; 51701; 74177; 80048; 80053; 81001; 81599; 83690; 83735; 84100; 85025; 87040; 87493; 87631; 96365; 96375; 97161; 99284; 99285; A9270; J7040; Q9967; 0202U; 81003; 87045; 87046; 87086

== ENCOUNTER 2021-10-27 17:07 | Outpatient (CLI) | payer MEDICARE ==
--- NOTE | 2021-11-10 11:52 | XRAY Report ---
PROCEDURE: Shoulder 3 View RT INDICATIONS: R SHOULDER PAIN. TECHNIQUE: 3 views of the shoulder were acquired. COMPARISON: None. FINDINGS: Bones: No acute fracture visualized. No glenohumeral joint dislocation. AC joint degenerative changes are present. Degenerative changes of the glenohumeral joint also likely present. Soft tissues: Possible calcific tendinopathy of the rotator cuff. IMPRESSION: 1. No acute fracture. No glenohumeral joint dislocation. 2. Possible calcific tendinopathy of the rotator cuff. 3. Acromioclavicular and glenohumeral joint degenerative changes. Reviewed by: Jaziel Holland MD on 10/28/2021 5:21 PM PDT Approved by: Jaziel Holland MD on 10/28/2021 5:21 PM PDT Station ID: [id number]
== END 2021-10-27 17:08 | disposition home or self-care (01) ==
LOC: DI.N 17:07
PROVIDERS: ATTEND Physician Assistant
DX: M19.011 Primary osteoarthritis, right shoulder (principal)

== ENCOUNTER 2021-11-11 16:26 | Outpatient (CLI) | payer MEDICARE | END 2021-11-11 16:27 | disposition critical access hospital (66) | LOC: EMS 16:26 | DX: R41.82 Altered mental status, unspecified (principal); R40.0 Somnolence; R09.89 Other specified symptoms and signs involving the circulatory and respiratory systems; R25.3 Fasciculation | CPT/HCPCS: A0425; A0429 ==

== ENCOUNTER 2021-11-11 16:41 | Emergency (ER) | payer MEDICARE ==
[2021-11-11] MEDS ORDERED: ROCURONIUM 50 MG/5 ML VIAL IVP STA ×2 (16:53→17:26)
[2021-11-11] MEDS ORDERED: PROPOFOL 200 MG/20 ML VIAL IVP STA ×2 (16:53→17:26)
[2021-11-11] MEDS ORDERED: PROPOFOL 1000 MG/100 ML 1,000 MG/100 ML BOTTLE IV STA ×2 (16:53→17:26)
--- NOTE | 2021-11-11 17:24 | ED Physician Documentation ---
History of Present Illness - Stated complaint Stated Complaint: AMS - Chief complaint Chief Complaint: Neuro - History obtained from History obtained from: EMS - Additonal information Additional information: 86-year-old woman brought in by ambulance for altered mental status. The daughter with whom she lives reports that she seen normal last night and saw her briefly today at 10 AM but then slept in longer. She usually sleeps until about 1 PM but at 3:00 she thought that was very atypical and found her unresponsive with sonorous respirations. There was no antecedent illness. She was hospital ized here about 3 months ago for colitis. Noted comorbidities at the time include GERD, hypercholesterolemia, depression, anxiety, and chronic back pain. 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: None : Incontinence HEENT: Glaucoma Psych: Depression, Anxiety Musculoskeletal: Chronic back pain Derm: None - Past Surgical History Past Surgical History: No - Present Medications Home Medications: Ambulatory Orders Medication Instructions Recorded Confirmed Omeprazole 20 mg PO DAILY 08/16/15 08/07/21 traZODone [Desyrel] 50 mg PO Q24HR@2100 08/16/15 08/07/21 Oxybutynin Chloride [Ditropan Xl] 20 mg PO DAILY 09/28/20 08/07/21 hydrOXYzine HCL [Hydroxyzine HCl] 10 mg PO DAILY PRN 09/28/20 08/07/21 Alprazolam [Xanax] 0.25 mg PO BID PRN 08/07/21 08/07/21 Atorvastatin Calcium 40 mg PO HS 08/07/21 08/07/21 Cetirizine [ZyrTEC] 10 mg PO DAILY 08/07/21 08/07/21 DULoxetine [Cymbalta] 30 mg PO DAILY 08/07/21 08/07/21 Gabapentin 600 mg PO BID 08/07/21 08/07/21 Meloxicam, Submicronized 15 mg PO DAILY PRN 08/07/21 08/07/21 [Meloxicam] carBAMazepine [Carbamazepine ER] 100 mg PO BID 08/07/21 08/07/21 traMADol [Ultram] 50 mg PO DAILY PRN 08/07/21 08/07/21 - Allergies Allergies/Adverse Reactions: Allergies Allergy/AdvReac Type Severity Reaction Status Date / Time codeine AdvReac Itching Verified 08/06/21 13:49 - Social History Does the pt smoke?: No Smoking Status: Never smoker Does the pt drink ETOH?: No Does the pt have substance abuse?: No - Immunizations Immunizations are current?: Yes - POLST Patient has POLST: No POLST Status: Full Code PD ED PE NORMAL - Vitals Vital signs reviewed: Yes - General General: Other (She is obtunded with sonorous respirations, withdraws to pain but has no purposeful movement or verbal activity) - HEENT HEENT: Other (Small pupils) - Neck Neck: Supple, no meningeal sign - Cardiac Cardiac: RRR, No murmur - Respiratory Respiratory: No respiratory distress, Other (Rhonchorous throughout) - Abdomen Abdomen: Non tender (With extensive prior surgical scarring) - Back Back: No CVA TTP, No spinal TTP - Derm Derm: Normal color, Warm and dry - Extremities Extremities: No edema, No calf tenderness / cord - Neuro Eye Opening: None Motor: Withdraws to Pain Verbal: None GCS Score: 6 Results - Vitals Vitals: Vital Signs - 24 hr 11/11/21 11/11/21 11/11/21 16:48 17:35 17:45 Temperature 36.3 C L Heart Rate 116 H 107 H 105 H Respiratory 22 12 Rate Blood Pressure 165/119 H 82/63 L O2 Saturation 99 100 11/11/21 11/11/21 11/11/21 17:50 17:55 18:00 Temperature Heart Rate 104 H 105 H 106 H Respiratory 14 12 16 Rate Blood Pressure 87/61 L 97/66 105/72 O2 Saturation 100 100 100 11/11/21 11/11/21 11/11/21 18:15 18:20 18:35 Temperature Heart Rate 103 H 108 H 99 Respiratory 12 16 15 Rate Blood Pressure 87/64 L 106/79 98/75 O2 Saturation 95 95 96 11/11/21 11/11/21 11/11/21 18:45 19:00 19:30 Temperature Heart Rate 98 98 95 Respiratory 12 12 12 Rate Blood Pressure 125/78 114/66 125/67 O2 Saturation 96 96 96 06/11/11/21 11/11/21 19:42 19:47 19:51 Temperature Heart Rate 97 96 Respiratory 12 12 Rate Blood Pressure 109/57 L 97/63 O2 Saturation 97 97 11/11/21 11/11/21 11/11/21 20:09 20:30 20:41 Temperature Heart Rate 94 87 93 Respiratory 12 13 Rate Blood Pressure 94/56 L 82/53 L 111/73 O2 Saturation 97 97 98 11/11/21 11/11/21 11/11/21 20:52 21:00 21:29 Temperature Heart Rate 91 95 99 Respiratory 16 15 12 Rate Blood Pressure 130/79 135/68 H 143/68 H O2 Saturation 98 95 95 11/11/21 11/11/21 11/11/21 21:30 21:46 21:52 Temperature 37.1 C Heart Rate 97 96 99 Respiratory 20 16 Rate Blood Pressure 129/63 108/62 O2 Saturation 99 99 11/11/21 11/11/21 22:00 22:20 Temperature Heart Rate 92 89 Respiratory 16 16 Rate Blood Pressure 120/83 H 112/76 O2 Saturation 98 97 Oxygen O2 Source Mechanical ventilator - EKG (time done) 1736 Rate: Rate (enter#) (108) Rhythm: Sinus tachycardia Norden: Normal Intervals: Normal MA QRS: Normal Ischemia: Other (Lateral inverted T waves with mild ST depression) Computer interpretation: Agree with computer - Labs Labs: Laboratory Tests 11/11/21 11/11/21 11/11/21 17:15 17:15 17:15 WBC 13.4 H RBC 4.21 Hgb 12.7 Hct 39.9 MCV 94.8 MCH 30.2 MCHC 31.8 L RDW 12.5 Plt Count 228 MPV 11.1 H Neut # (Auto) 10.4 H Lymph # (Auto) 1.6 [place] # (Auto) 1.0 Eos # (Auto) 0.3 Baso # (Auto) 0.1 Absolute Nucleated RBC 0.00 Nucleated RBC % 0.0 PT INR Bld Gas Analysis Time ABG pH ABG pCO2 ABG pO2 ABG HCO3 ABG Total CO2 ABG O2 Saturation ABG Base Excess Danny Test VBG pH VBG pCO2 VBG pO2 VBG HCO3 VBG Total CO2 VBG O2 Saturation VBG Base Excess Respiration Rate O2 Delivery Device Vent Mode FiO2 Tidal Volume PEEP Sodium 139 Potassium 4.1 Chloride 102 Carbon Dioxide 28 Anion Gap 9.0 BUN 19 Creatinine 1.1 H Estimated GFR (MDRD) 47 L Glucose 132 H Lactic Acid 0.9 Calcium 9.2 Total Bilirubin 0.6 AST 19 ALT 14 Alkaline Phosphatase 92 Total Protein 6.9 Albumin 4.1 Globulin 2.8 Albumin/Globulin Ratio 1.5 TSH Urine Color Urine Clarity Urine pH Ur Specific [place] Urine Protein Urine Glucose (UA) Urine Ketones Urine Occult Blood Urine Nitrite Urine Bilirubin Urine Urobilinogen Ur Leukocyte Esterase Urine RBC Urine WBC Ur Squamous Epith Cells Urine Bacteria Urine Mucus Urine Culture Comments Nasal Adenovirus (PCR) Nasal B. parapertussis DNA (PCR) Nasal Coronavir 229E PCR Nasal Coronavir HKU1 PCR Nasal Coronavir NL63 PCR Nasal Coronavir OC43 PCR Nasal Enterovir/Rhinovir PCR Nasal Influenza B PCR Nasal Influenza A PCR Nasal Parainfluen 1 PCR Nasal Parainfluen 2 PCR Nasal Parainfluen 3 PCR Nasal Parainfluen 4 PCR Nasal RSV (PCR) Nasal B.pertussis DNA PCR Nasal C.pneumoniae (PCR) [place] Metapneumo PCR Nasal M.pneumoniae (PCR) Nasal SARS-CoV-2 (PCR) Salicylates < 6.0 Urine Opiates Screen Ur Oxycodone Screen Urine Methadone Screen Ur Propoxyphene Screen Acetaminophen < 10 L Ur Barbiturates Screen Ur Tricyclics Screen Ur Phencyclidine Scrn Ur Amphetamine Screen U Methamphetamines Scrn U Benzodiazepines Scrn Urine Cocaine Screen U Cannabinoids Screen Ethyl Alcohol < 5.0 11/11/21 11/11/21 11/11/21 17:15 17:15 17:15 WBC RBC Hgb Hct MCV MCH MCHC RDW Plt Count MPV Neut # (Auto) Lymph # (Auto) [place] # (Auto) Eos # (Auto) Baso # (Auto) Absolute Nucleated RBC Nucleated RBC % PT 11.2 INR 1.0 Bld Gas Analysis Time ABG pH ABG pCO2 ABG pO2 ABG HCO3 ABG Total CO2 ABG O2 Saturation ABG Base Excess Danny Test VBG pH 7.215 L VBG pCO2 67.9 H VBG pO2 53.0 H VBG HCO3 26.9 VBG Total CO2 28.9 VBG O2 Saturation 84.1 H VBG Base Excess -2.4 L Respiration Rate O2 Delivery Device Vent Mode FiO2 Tidal Volume PEEP Sodium Potassium Chloride Carbon Dioxide Anion Gap BUN Creatinine Estimated GFR (MDRD) Glucose Lactic Acid Calcium Total Bilirubin AST ALT Alkaline Phosphatase Total Protein Albumin Globulin Albumin/Globulin Ratio TSH 4.44 Urine Color Urine Clarity Urine pH Ur Specific [place] Urine Protein Urine Glucose (UA) Urine Ketones Urine Occult Blood Urine Nitrite Urine Bilirubin Urine Urobilinogen Ur Leukocyte Esterase Urine RBC Urine WBC Ur Squamous Epith Cells Urine Bacteria Urine Mucus Urine Culture Comments Nasal Adenovirus (PCR) Nasal B. parapertussis DNA (PCR) Nasal Coronavir 229E PCR Nasal Coronavir HKU1 PCR Nasal Coronavir NL63 PCR Nasal Coronavir OC43 PCR Nasal Enterovir/Rhinovir PCR Nasal Influenza B PCR Nasal Influenza A PCR Nasal Parainfluen 1 PCR Nasal Parainfluen 2 PCR Nasal Parainfluen 3 PCR Nasal Parainfluen 4 PCR Nasal RSV (PCR) Nasal B.pertussis DNA PCR Nasal C.pneumoniae (PCR) [place] Metapneumo PCR Nasal M.pneumoniae (PCR) Nasal SARS-CoV-2 (PCR) Salicylates Urine Opiates Screen Ur Oxycodone Screen Urine Methadone Screen Ur Propoxyphene Screen Acetaminophen Ur Barbiturates Screen Ur Tricyclics Screen Ur Phencyclidine Scrn Ur Amphetamine Screen U Methamphetamines Scrn U Benzodiazepines Scrn Urine Cocaine Screen U Cannabinoids Screen Ethyl Alcohol 11/11/21 11/11/21 11/11/21 17:28 17:46 17:58 WBC RBC Hgb Hct MCV MCH MCHC RDW Plt Count MPV Neut # (Auto) Lymph # (Auto) [place] # (Auto) Eos # (Auto) Baso # (Auto) Absolute Nucleated RBC Nucleated RBC % PT INR Bld Gas Analysis Time 1801 ABG pH 7.31 L ABG pCO2 45 ABG pO2 326 H* ABG HCO3 22.1 ABG Total CO2 23.5 ABG O2 Saturation 99 H ABG Base Excess -4.1 L Danny Test POSITIVE VBG pH VBG pCO2 VBG pO2 VBG HCO3 VBG Total CO2 VBG O2 Saturation VBG Base Excess Respiration Rate 12 O2 Delivery Device VENTILATOR Vent Mode ASSIST/CONTROL FiO2 100.00 Tidal Volume 400 PEEP 5 Sodium Potassium Chloride Carbon Dioxide Anion Gap BUN Creatinine Estimated GFR (MDRD) Glucose Lactic Acid Calcium Total Bilirubin AST ALT Alkaline Phosphatase Total Protein Albumin Globulin Albumin/Globulin Ratio TSH Urine Color YELLOW Urine Clarity CLEAR Urine pH 6.0 Ur Specific [place] >=1.030 H Urine Protein NEGATIVE Urine Glucose (UA) NEGATIVE Urine Ketones NEGATIVE Urine Occult Blood NEGATIVE Urine Nitrite NEGATIVE Urine Bilirubin NEGATIVE Urine Urobilinogen 0.2 (NORMAL) Ur Leukocyte Esterase NEGATIVE Urine RBC 0-5 Urine WBC 0-3 Ur Squamous Epith Cells FEW Squamous Urine Bacteria Rare Urine Mucus Few Strands Urine Culture Comments NOT INDICATED Nasal Adenovirus (PCR) NOT DETECTED Nasal B. parapertussis DNA (PCR) NOT DETECTED Nasal Coronavir 229E PCR NOT DETECTED Nasal Coronavir HKU1 PCR NOT DETECTED Nasal Coronavir NL63 PCR NOT DETECTED Nasal Coronavir OC43 PCR NOT DETECTED Nasal Enterovir/Rhinovir PCR NOT DETECTED Nasal Influenza B PCR NOT DETECTED Nasal Influenza A PCR NOT DETECTED Nasal Parainfluen 1 PCR NOT DETECTED Nasal Parainfluen 2 PCR NOT DETECTED Nasal Parainfluen 3 PCR NOT DETECTED Nasal Parainfluen 4 PCR NOT DETECTED Nasal RSV (PCR) NOT DETECTED Nasal B.pertussis DNA PCR NOT DETECTED Nasal C.pneumoniae (PCR) NOT DETECTED [place] Metapneumo PCR NOT DETECTED Nasal M.pneumoniae (PCR) NOT DETECTED Nasal SARS-CoV-2 (PCR) NOT DETECTED Salicylates Urine Opiates Screen POSITIVE H Ur Oxycodone Screen NEGATIVE Urine Methadone Screen NEGATIVE Ur Propoxyphene Screen NEGATIVE Acetaminophen Ur Barbiturates Screen NEGATIVE Ur Tricyclics Screen NEGATIVE Ur Phencyclidine Scrn NEGATIVE Ur Amphetamine Screen NEGATIVE U Methamphetamines Scrn NEGATIVE U Benzodiazepines Scrn POSITIVE H Urine Cocaine Screen NEGATIVE U Cannabinoids Screen NEGATIVE Ethyl Alcohol 11/11/21 20:31 WBC RBC Hgb Hct MCV MCH MCHC RDW Plt Count MPV Neut # (Auto) Lymph # (Auto) [place] # (Auto) Eos # (Auto) Baso # (Auto) Absolute Nucleated RBC Nucleated RBC % PT INR Bld Gas Analysis Time ABG pH ABG pCO2 ABG pO2 ABG HCO3 ABG Total CO2 ABG O2 Saturation ABG Base Excess Danny Test VBG pH VBG pCO2 VBG pO2 VBG HCO3 VBG Total CO2 VBG O2 Saturation VBG Base Excess Respiration Rate O2 Delivery Device Vent Mode FiO2 Tidal Volume PEEP Sodium Potassium Chloride Carbon Dioxide Anion Gap BUN Creatinine Estimated GFR (MDRD) Glucose Lactic Acid 1.0 Calcium Total Bilirubin AST ALT Alkaline Phosphatase Total Protein Albumin Globulin Albumin/Globulin Ratio TSH Urine Color Urine Clarity Urine pH Ur Specific [place] Urine Protein Urine Glucose (UA) Urine Ketones Urine Occult Blood Urine Nitrite Urine Bilirubin Urine Urobilinogen Ur Leukocyte Esterase Urine RBC Urine WBC Ur Squamous Epith Cells Urine Bacteria Urine Mucus Urine Culture Comments Nasal Adenovirus (PCR) Nasal B. parapertussis DNA (PCR) Nasal Coronavir 229E PCR Nasal Coronavir HKU1 PCR Nasal Coronavir NL63 PCR Nasal Coronavir OC43 PCR Nasal Enterovir/Rhinovir PCR Nasal Influenza B PCR Nasal Influenza A PCR Nasal Parainfluen 1 PCR Nasal Parainfluen 2 PCR Nasal Parainfluen 3 PCR Nasal Parainfluen 4 PCR Nasal RSV (PCR) Nasal B.pertussis DNA PCR Nasal C.pneumoniae (PCR) [place] Metapneumo PCR Nasal M.pneumoniae (PCR) Nasal SARS-CoV-2 (PCR) Salicylates Urine Opiates Screen Ur Oxycodone Screen Urine Methadone Screen Ur Propoxyphene Screen Acetaminophen Ur Barbiturates Screen Ur Tricyclics Screen Ur Phencyclidine Scrn Ur Amphetamine Screen U Methamphetamines Scrn U Benzodiazepines Scrn Urine Cocaine Screen U Cannabinoids Screen Ethyl Alcohol - Rads (name of study) 1v cxr Radiology: EMP read contemporaneously (Single view chest x-ray demonstrates ETT 8 mm above the don, appropriate placement of the right IJ central line and right upper lobe infiltrate.) CT of the head shows atrophy and chronic ischemic change without acute finding Radiology: EMP read contemporaneously Procedures - Intubation Provider: Emergency physician Medications: Propofol (100mg IVP), Rocuronium (30mg IVP) Blade: Glidescope Tube: Size-enter number (7-0), Cuffed Confirmation: Direct visualization - Central Line Central Line Preparation: Consent Obtained, Unable to obtain consent, Time out completed Central line location: Right IJ Central line type: Triple lumen Central line aftercare: Chlorhexidine disc placed, Secured, Placement confirmed, No pneumothorax, No complications PD MEDICAL DECISION MAKING - ED course ED course: 86-year-old woman presents by ambulance obtunded. We was clear that she would need intubation for airway protection and the daughter at the bedside stated that she was full code and wanted aggressive interventions. Initially an IV was placed in the right upper arm by the nurse and meds were pushed for intubation, it was clear that these meds were ineffective and a bedside ultrasound dem onstrated that the line was infiltrated. Subsequently I expeditiously placed a right IJ central line for access and then we went ahead and intubated her. Chest x-ray read noted, endotracheal tube pulled back 2 cm after. Treated with Rocephin and azithromycin for note of right upper lobe pneumonia on x-ray albeit it seems fairly minor and with a white count of only 13 and a normal lactate I am not sure that is going to be her major issue. CT of the head without acute findings. Discussed with daughter finding of opiates and benzodiazepines in urine drug screen, she takes tramadol at night and alprazolam twice a day. She does not think she would have overdosed either accidentally or purposefully. No ICU bed is available here and a search for a another facility with an ICU bed available was begun at approximately 7:20 PM. She started develop some hypotension around 8 PM. Initially this was thought related to the propofol, however lowering the propofol did not seem to help too much. A liter of IV fluids was given and this helped for a bit but then the hypotension recurred and she was placed on Levophed. Lactate will be redrawn but the initial lactate was normal. However she does now fit criteria for septic shock, time of onset 8 PM. She was accepted to [facility] by Dr Dr. Marco Antonio Banks at 2049 - Critical Care Time(min): 65 Time Includes: Direct patient care, Review records, Reassess patient, Document care, Coordinate care, Medical consult, Family consult for ga dec Data interpretation: Labs, Pulse ox, ABG, CXR Procedures included in critical care time: Peripheral IV Procedures excluded from critical care time: Central IV, Intubation, EKG - Sepsis Event Sepsis Onset Date: 11/11/21 Sepsis Onset Time: 20:00 Current Stage of Sepsis: Septic shock Initial Hypotension: SBP drop more than 40 mmHg from baseline Possible source of Sepsis: Pulmonary Capillary refill: Greater than 2 seconds Peripheral Pulse Strength: 2+ Slightly Diminished Peripheral Pulse Location: Radial Departure - Departure Disposition: 02 Transfer Acute Care Hosp Clinical Impression: Septic shock Coma Qualifiers: Coma depth: [place] coma 3-8 Coma timing: in the field (EMT or ambulance) Qualified Code(s): R40.2431 - [place] coma scale score 3-8, in the field [EMT or ambulance] Respiratory failure Qualifiers: Chronicity: acute Respiratory failure complication: hypoxia and hypercapnia Qualified Code(s): J96.01 - Acute respiratory failure with hypoxia Right upper lobe pneumonia Qualifiers: Pneumonia type: due to unspecified organism Qualified Code(s): J18.9 - Pneumonia, unspecified organism Condition: Critical
[2021-11-11 17:26] LABS: BASOPHILS # (AUTO) 0.1 10^3/uL (0.0-0.1); BASOPHILS % (AUTO) 0.4 %; EOSINOPHILS # (AUTO) 0.3 10^3/uL (0.0-0.7); EOSINOPHILS % (AUTO) 1.9 %; HCT - HEMATOCRIT 39.9 % (37.0-47.0); HGB - HEMOGLOBIN 12.7 g/dL (12.0-16.0); LYMPHOCYTES # (AUTO) 1.6 10^3/uL (1.5-3.5); LYMPHOCYTES % (AUTO) 12.2 %; MEAN CORPUSCULAR HEMOGLOBIN 30.2 pg (27.0-31.0); MEAN CORPUSCULAR HGB CONC 31.8 g/dL (32.0-36.0); MEAN CORPUSCULAR VOLUME 94.8 fL (81.0-99.0); MEAN PLATELET VOLUME 11.1 fL (7.9-10.8); MONOCYTES % (AUTO) 7.5 %; NEUTROPHILS # (AUTO) 10.4 10^3/uL (1.5-6.6); NEUTROPHILS % (AUTO) 77.6 %; PLT - PLATELET COUNT 228 10^3/uL (130-450); RED BLOOD COUNT 4.21 10^6/uL (4.20-5.40); RED CELL DISTRIBUTION WIDTH 12.5 % (12.0-15.0); WHITE BLOOD COUNT 13.4 x10^3/uL (4.8-10.8)
[2021-11-11 17:30] LABS: VBG PH 7.215 (7.31-7.41)
[2021-11-11 17:31] LABS: VBG BASE EXCESS -2.4 mmol/L (-2 - +2); VBG HCO3 26.9 mmol/L (23-28); VBG OXYGEN SATURATION 84.1 % (60-80); VBG PCO2 67.9 mmHg (41-51); VBG TOTAL CO2 28.9 mmol/L (24-29)
[2021-11-11 17:34] LABS: PT - PROTHROMBIN TIME 11.2 secs (9.9-12.6)
[2021-11-11 17:37] LABS: ACETAMINOPHEN < 10 ug/mL (10-30); ALBUMIN 4.1 g/dL (3.2-5.5); ALBUMIN/GLOBULIN RATIO 1.5 (1.0-2.2); ALKALINE PHOSPHATASE 92 IU/L (42-121); ALT ALANINE AMINOTRANSFERASE 14 IU/L (10-60); AST ASPARTATE AMINOTRANSFERASE 19 IU/L (10-42); BILIRUBIN,TOTAL 0.6 mg/dL (0.2-1.0); BUN - BLOOD UREA NITROGEN 19 mg/dL (6-20); CALCIUM 9.2 mg/dL (8.5-10.3); CARBON DIOXIDE - CO2 28 mmol/L (21-32); CHLORIDE 102 mmol/L (101-111); CREATININE 1.1 mg/dL (0.4-1.0); ETOH - ETHANOL < 5.0 mg/dL; GFR - MDRD 47 (>89); GLUCOSE 132 mg/dL (70-100); POTASSIUM 4.1 mmol/L (3.5-5.0); SALICYLATE < 6.0 mg/dL; SODIUM 139 mmol/L (135-145); TOTAL PROTEIN 6.9 g/dL (6.7-8.2)
[2021-11-11 17:50] LABS: MUDS CUTOFF CONCENTRATIONS CUTOFF CONC BELOW:
[2021-11-11 17:54] LABS: BILIRUBIN,URINE NEGATIVE (NEGATIVE); GLUCOSE, URINE (UA) NEGATIVE (NEGATIVE); KETONES,URINE (UA) NEGATIVE (NEGATIVE); LEUKOCYTE ESTERASE, URINE NEGATIVE (NEGATIVE); NITRITE,URINE NEGATIVE (NEGATIVE); OCCULT BLOOD,URINE NEGATIVE (NEGATIVE); PROTEIN,URINE NEGATIVE (NEGATIVE); UROBILINOGEN,URINE 0.2 (NORMAL) E.U./dL (NORMAL)
[2021-11-11 17:55] LABS: CLARITY,URINE CLEAR (CLEAR)
[2021-11-11] MEDS ORDERED: SODIUM CHLORIDE 0.9% 1,000 ML IV STA (18:01)
[2021-11-11 18:05] LABS: ABG HCO3 22.1 mmol/L (22.0-26.0); ABG PCO2 45 mmHg (34-45); ABG PH 7.31 (7.35-7.45)
[2021-11-11 18:05] LABS: AMPHETAMINE SCREEN,URINE NEGATIVE (NEGATIVE); BARBITURATE SCREEN,UR NEGATIVE (NEGATIVE); BENZODIAZEPINES SCREEN, URINE POSITIVE (NEGATIVE); COCAINE SCREEN URINE NEGATIVE (NEGATIVE); METHADONE SCREEN, URINE NEGATIVE (NEGATIVE); METHAMPHETAMINES SCREEN, URINE NEGATIVE (NEGATIVE); OPIATE SCREEN, URINE POSITIVE (NEGATIVE); OXYCODONE SCREEN, URINE NEGATIVE (NEGATIVE); PROPOXYPHENE SCREEN, URINE NEGATIVE (NEGATIVE); THC CANNABINOID SCREEN, URINE NEGATIVE (NEGATIVE); TRICYCLIC ANTIDEPRESSANT,URINE NEGATIVE (NEGATIVE)
[2021-11-11 18:06] LABS: ABG BASE EXCESS -4.1 mmol/L (-2.0-3.0); ABG MODE OF VENTILATION ASSIST/CONTROL; ABG OXYGEN SATURATION 99 % (94-98); ABG RESPIRATORY RATE 12 b/min; ABG TCO2 23.5 MMOL/L (21.0-29.0); ALLEN TEST POSITIVE
[2021-11-11 18:08] LABS: ABG PO2 326 mmHg (80-100)
[2021-11-11 18:09] LABS: BACTERIA,URINE Rare /HPF (None Seen); MUCUS,URINE Few Strands; RBC,URINE 0-5 /HPF (0-5); SQUAMOUS EPITHELIAL CELL,UR FEW Squamous (<= Few); WBC,URINE 0-3 /HPF (0-5)
--- NOTE | 2021-11-11 18:10 | XRAY Report ---
PROCEDURE: Chest for Line Placement INDICATIONS: RESPIRATORY FAILURE TECHNIQUE: One view of the chest was acquired. COMPARISON: Chest x-ray one view, 06/13/2019. FINDINGS: Surgical changes and devices: There is an endotracheal tube 0.8 cm cm above don. A right-sided ericka tral line seen projecting to the SVC. Lungs and pleura: No pleural effusions or pneumothorax. Right upper lobe infiltrates consistent with pneumonia. Mediastinum: Mediastinal contours appear normal. Heart size is normal. Bones and chest wall: No suspicious bony lesions. Overlying soft tissues appear unremarkable. IMPRESSION: 1. Endotracheal tube is 0.8 cm above don. Recommend repositioning. 2. Right central line tip is in the area of SVC. 3. Right upper lobe infiltrates consistent with pneumonia. Reviewed by: Fior Johnson MD on 11/11/2021 6:08 PM PDT Approved by: Fior Johnson MD on 11/11/2021 6:08 PM PDT Station ID: [id number]
[2021-11-11] MEDS ORDERED: VECURONIUM 10 MG VIAL IVP STA (18:21)
[2021-11-11] MEDS ORDERED: fentaNYL 100 MCG/2 ML VIAL IVP STA (18:21)
[2021-11-11 18:29] LABS: B. PARAPERTUSSIS- RESP PCR PAN NOT DETECTED; B. PERTUSSIS- RESP PCR PANEL NOT DETECTED; C. PNEUMONIAE- RESP PCR PANEL NOT DETECTED; CORONAVIRUS 229E-RESP PCR NOT DETECTED; CORONAVIRUS HKU1-RESP PCR NOT DETECTED; CORONAVIRUS NL63-RESP PCR NOT DETECTED; CORONAVIRUS OC43-RESP PCR NOT DETECTED; HUMAN METAPNEUMOVIRUS NOT DETECTED; INFLUENZA A- RESP PCR PANEL NOT DETECTED; INFLUENZA B - RESP PCR PANEL NOT DETECTED; M. PNEUMONIAE- RESP PCR PANEL NOT DETECTED; PARAINFLUENZA VIRUS 1 NOT DETECTED; PARAINFLUENZA VIRUS 2 NOT DETECTED; PARAINFLUENZA VIRUS 3 NOT DETECTED; PARAINFLUENZA VIRUS 4 NOT DETECTED; RHINOVIRUS/ENTEROVIRUS NOT DETECTED; RSV- RESP PCR PANEL NOT DETECTED; SARS-CoV-2 -RESP PCR PANEL NOT DETECTED
[2021-11-11] MEDS ORDERED: cefTRIAXone 1 GM in SODIUM CHLORIDE 0.9% MINIBAG 100 ML IV STA (18:40)
[2021-11-11] MEDS ORDERED: AZITHROMYCIN INJ 500 MG in SODIUM CHLORIDE 0.9% 250 ML IV STA (18:40)
--- NOTE | 2021-11-11 19:04 | CT Report ---
PROCEDURE: CT brain without contrast INDICATIONS: Altered mental status TECHNIQUE: Noncontrast 4.5 mm thick angled axial sections acquired from the foramen magnum to the vertex. For r adiation dose reduction, the following was used: automated exposure control, adjustment of mA and/or kV according to patient size. COMPARISON: None. FINDINGS: Image quality: Excellent. CSF spaces: Basal cisterns are patent. No extra-axial fluid collections. Ventricles are normal in size and shape. Brain: No midline shift. No intracranial masses or hemorrhage. Sharpe-white matter interface is norm al. Moderate atrophy and multifocal white matter chronic ischemic change noted. Atherosclerotic vasc ular calcification noted in the cavernous segments of both internal carotid arteries as well as the i ntradural vertebral arteries. Skull and face: Calvarium and visualized facial bones are intact, without suspicious lesions. Sinuses: Visualized sinuses and mastoids are clear. IMPRESSION: Atrophy and chronic ischemic change without acute hemorrhage or mass effect. Reviewed by: Deshaun Priest MD on 11/11/2021 6:03 PM DERIK Approved by: Deshaun Priest MD on 11/11/2021 6:03 PM AKTRU Station ID: [id number]
[2021-11-11] MEDS ORDERED: LACTATED RINGERS 1,500 ML IV STA (20:43)
--- NOTE | 2021-11-11 20:47 | CT Report ---
PROCEDURE: Abdomen/Pelvis WO INDICATIONS: ams TECHNIQUE: Noncontrast 5 mm thick sections acquired from the diaphragms to the symphysis. 5 mm coronal and sagi ttal reformats were then performed. For radiation dose reduction, the following was used: automated exposure control, adjustment of mA and/or kV according to patient size. COMPARISON: CT abdomen pelvis 08/06/2021, 09/28/2020. FINDINGS: Image quality: There is mild motion artifact. Lung bases:There is dependent atelectasis bilaterally. A more confluent region in the posterior righ t lower lobe may also represent a small area of consolidation. Heart: Heart is normal in size. ABDOMEN: Liver:Noncontrast evaluation of the liver demonstrates no discrete hepatic mass. Gallbladder:The gallbladder is distended without calcified gallstones or wall thickening. Biliary ducts: No biliary ductal dilatation. Pancreas:There is mild atrophy of the pancreas. No definite intrahepatic duct dilatation or discrete mass identified on noncontrast evaluation. Spleen: Normal in size. Adrenal Glands: No adrenal nodules. Kidneys and Ureters: No hydronephrosis. Stomach and Bowel: A nasogastric tube is present extending to the stomach. There is a loculated exop hytic collection contiguous with the stomach suggestive of a gastric diverticulum. Stomach and small bowel loops are normal in caliber and wall thickness. The appendix is not discretely visualized there are no pericecal inflammatory changes to suggest appendicitis. There is colonic diverticulosis witho ut acute diverticulitis. Mild segmental wall thickening in the sigmoid colon may reflect a mild colit is. Peritoneum: No abnormal intraperitoneal fluid. No free air. Ventral Wall: No hernia. Abdominal Nodes: No retroperitoneal or mesenteric adenopathy by size criteria. Vessels: Aorta and inferior vena cava are normal in size. PELVIS: Pelvic Organs:An IUD device is redemonstrated within the uterus. Bladder:There is a Quijano catheter within a partially distended urinary bladder. Pelvic Nodes: No enlarged lymph nodes. Miscellaneous: No inguinal hernias are seen. Bones: Visualized osseous structures demonstrate no suspicious focal lesions. IMPRESSION: 1. Colonic diverticulosis without definite acute diverticulitis. Mild segmental wall thickening the s igmoid colon may reflect a mild colitis. 2. Dependent atelectasis in the lungs with a confluent region in the posterior right lower lobe which may represent round atelectasis or consolidation/pneumonia. 3. Distention of the gallbladder without calcified gallstones or wall thickening. If there is clinica l suspicion for cholecystitis, further evaluation may be obtained with ultrasound. Reviewed by: Tenzin Brothers MD on 11/11/2021 8:46 PM PDT Approved by: Tenzin Brothers MD on 11/11/2021 8:46 PM PDT Station ID: [id number]
[2021-11-11] MEDS ORDERED: HYDROmorphone 1 MG/ML CARPUJECT IVP STA (21:38)
[2021-11-11 22:21] VITALS: BP 112/76
== END 2021-11-11 22:50 | disposition short-term general hospital (02) ==
LOC: EDUNIT# → ED 16:41
DX: J18.9 Pneumonia, unspecified organism (principal); A41.9 Sepsis, unspecified organism; R65.21 Severe sepsis with septic shock; J96.01 Acute respiratory failure with hypoxia; R40.2431 Glasgow coma scale score 3-8, in the field [EMT or ambulance]; Z20.822 Contact with and (suspected) exposure to COVID-19
CPT/HCPCS: 31500; 36415; 36556; 36600; 43753; 51702; 70450; 74176; 80053; 80306; 80307; 81001; 82803; 83605; 84443; 85025; 85610; 87040; 87633; 93005; 94002; 96365; 96367; 96368; 96375; 99291; G0480; J7120; 80320; 80329; 87086; 94770

== ENCOUNTER 2022-02-05 14:09 | Outpatient (CLI) | payer MEDICARE | END 2022-02-05 14:10 | disposition short-term general hospital (02) | LOC: EMS 14:09 | DX: M25.552 Pain in left hip (principal); R26.2 Difficulty in walking, not elsewhere classified | CPT/HCPCS: A0425; A0427; A0888 ==

== ENCOUNTER 2022-03-02 12:39 | Outpatient (CLI) | payer MEDICARE, MEDICAID | END 2022-03-02 12:40 | disposition short-term general hospital (02) | LOC: EMS 12:39 | DX: M54.50 Low back pain, unspecified (principal); G89.29 Other chronic pain | CPT/HCPCS: A0425; A0429; A0888 ==

== ENCOUNTER 2022-04-03 10:23 | Outpatient (CLI) | payer MEDICARE, MEDICAID | END 2022-04-03 10:24 | disposition short-term general hospital (02) | LOC: EMS 10:23 | DX: R10.84 Generalized abdominal pain (principal); R10.817 Generalized abdominal tenderness; R11.0 Nausea; R68.83 Chills (without fever); R14.2 Eructation | CPT/HCPCS: A0425; A0429; A0888 ==

== ENCOUNTER 2022-04-05 14:40 | Outpatient (CLI) | payer MEDICARE, MEDICAID | END 2022-04-05 14:41 | disposition short-term general hospital (02) | LOC: EMS 14:40 | DX: R10.11 Right upper quadrant pain (principal); R11.0 Nausea; R63.0 Anorexia | CPT/HCPCS: A0425; A0427; A0888 ==

== ENCOUNTER 2022-04-06 21:02 | Outpatient (CLI) | payer MEDICARE, MEDICAID | END 2022-04-06 21:03 | disposition critical access hospital (66) | LOC: EMS 21:02 | DX: R10.11 Right upper quadrant pain (principal) | CPT/HCPCS: A0425; A0429 ==

== ENCOUNTER 2022-04-06 21:23 | Emergency (ER) | payer MEDICARE, MEDICAID ==
[2022-04-06 22:11] LABS: BASOPHILS # (AUTO) 0.1 10^3/uL (0.0-0.1); BASOPHILS % (AUTO) 0.6 %; EOSINOPHILS # (AUTO) 0.1 10^3/uL (0.0-0.7); EOSINOPHILS % (AUTO) 0.6 %; HCT - HEMATOCRIT 38.3 % (37.0-47.0); HGB - HEMOGLOBIN 12.4 g/dL (12.0-16.0); LYMPHOCYTES # (AUTO) 1.8 10^3/uL (1.5-3.5); LYMPHOCYTES % (AUTO) 11.3 %; MEAN CORPUSCULAR HEMOGLOBIN 29.6 pg (27.0-31.0); MEAN CORPUSCULAR HGB CONC 32.4 g/dL (32.0-36.0); MEAN CORPUSCULAR VOLUME 91.4 fL (81.0-99.0); MEAN PLATELET VOLUME 10.7 fL (7.9-10.8); NEUTROPHILS % (AUTO) 81.1 %; PLT - PLATELET COUNT 288 10^3/uL (130-450); RED BLOOD COUNT 4.19 10^6/uL (4.20-5.40); RED CELL DISTRIBUTION WIDTH 12.3 % (12.0-15.0)
[2022-04-06 22:29] LABS: ALBUMIN 4.3 g/dL (3.2-5.5); ALBUMIN/GLOBULIN RATIO 1.5 (1.0-2.2); BILIRUBIN,TOTAL 0.7 mg/dL (0.2-1.0); CALCIUM 9.2 mg/dL (8.5-10.3); CREATININE 0.7 mg/dL (0.4-1.0); POTASSIUM 3.7 mmol/L (3.5-5.0); TOTAL PROTEIN 7.2 g/dL (6.7-8.2)
[2022-04-06] MEDS ORDERED: ONDANSETRON 4 MG/2 ML VIAL IVP STA (23:06)
[2022-04-06] MEDS ORDERED: iohexoL-300 100 ML VIAL ONE (23:11)
[2022-04-06] MEDS ORDERED: MORPHINE 2 MG/ML CARPUJECT IVP STA (23:14)
[2022-04-06 23:26] LABS: GLUCOSE, URINE (UA) NEGATIVE (NEGATIVE); KETONES,URINE (UA) 40 mg/dL (NEGATIVE); LEUKOCYTE ESTERASE, URINE NEGATIVE (NEGATIVE); NITRITE,URINE NEGATIVE (NEGATIVE); OCCULT BLOOD,URINE NEGATIVE (NEGATIVE); PROTEIN,URINE TRACE mg/dL (NEGATIVE); UROBILINOGEN,URINE 1 (NORMAL) E.U./dL (NORMAL)
[2022-04-06 23:33] LABS: BILIRUBIN,URINE NEGATIVE (NEGATIVE); CLARITY,URINE CLEAR (CLEAR); ICTOTEST,URINE NEGATIVE
[2022-04-06] MEDS ORDERED: SODIUM CHLORIDE 0.9% 1,000 ML IV STA (23:51)
--- NOTE | 2022-04-07 00:08 | ED Physician Documentation ---
PD HPI ABD PAIN - Stated complaint Stated Complaint: RUQ PX - Chief complaint Chief Complaint: Abd Pain - History obtained from History obtained from: Patient - Additional information Additional information: Patient is an 86-year-old female with a previous history of colon resection presenting for evaluation of right upper quadrant pain. She has had ongoing abdominal pain in the last several days with 2 recent visits to [facility] ER for work-up of gallbladder issues.She was seen on April [address] scan and ultrasound.Her CT demonstrated gallbladder distention without pericholecystic inflammatory change consider further evaluation ultrasound right upper quadrant and/or HIDA scan.Her ultrasound was read as gallbladder distention without convincing evidence of acute cholecystitis. Consider HIDA scan to evaluate gallbladder dysfunction.She was discharged home and again presented on April 05 with right upper quadrant pain. She had an MR Of her abdomen which demonstrated gallbladder hydrops with no evidence of acute cholecystitis. No gallbladder wall thickening or pericholecystic fluid or edema. The common bile duct is mildly dilated measuring 9 mm but no stone is identified.Surgery was consulted and recommended outpatient follow-up for a HIDA scan. They also recommended pain medication and a clear liquid diet. Patient is on tramadol already for chronic pain which she normally takes twice a day but was instructed to use it every 6 hours as needed for pain.This morning her daughter made her eggs and toast and her pain worsened. She has associated nausea. She has had a bowel movement today. Nothing makes the pain better.She denies fever, chest pain, difficulty breathing, back pain or dysuria. Review of Systems Constitutional: denies: Fever Nose: denies: Congestion Cardiac: denies: Chest pain / pressure Respiratory: denies: Dyspnea GI: reports: Abdominal Pain, Nausea. denies: Vomiting, Diarrhea : denies: Dysuria Musculoskeletal: denies: Back pain Neurologic: denies: Headache PD PAST MEDICAL HISTORY - Past Medical History Past Medical History: Yes Cardiovascular: High cholesterol Respiratory: Shortness of breath Neuro: Other Endocrine/Autoimmune: None GI: GERD SOLE DYER: None : Incontinence HEENT: Glaucoma Psych: Depression, Anxiety Musculoskeletal: Chronic back pain Derm: None - Past Surgical History Past Surgical History: No - Present Medications Home Medications: Ambulatory Orders Medication Instructions Recorded Confirmed Omeprazole 20 mg PO DAILY 08/16/15 08/07/21 traZODone [Desyrel] 50 mg PO Q24HR@2100 08/16/15 08/07/21 Oxybutynin Chloride [Ditropan Xl] 20 mg PO DAILY 09/28/20 08/07/21 hydrOXYzine HCL [Hydroxyzine HCl] 10 mg PO DAILY PRN 09/28/20 08/07/21 Alprazolam [Xanax] 0.25 mg PO BID PRN 08/07/21 08/07/21 Atorvastatin Calcium 40 mg PO HS 08/07/21 08/07/21 Cetirizine [ZyrTEC] 10 mg PO DAILY 08/07/21 08/07/21 DULoxetine [Cymbalta] 30 mg PO DAILY 08/07/21 08/07/21 Gabapentin 600 mg PO BID 08/07/21 08/07/21 Meloxicam, Submicronized 15 mg PO DAILY PRN 08/07/21 08/07/21 [Meloxicam] carBAMazepine [Carbamazepine ER] 100 mg PO BID 08/07/21 08/07/21 traMADol [Ultram] 50 mg PO DAILY PRN 08/07/21 08/07/21 - Allergies Allergies/Adverse Reactions: Allergies Allergy/AdvReac Type Severity Reaction Status Date / Time No Known Drug Allergies Allergy Verified 04/06/22 21:34 - Social History Does the pt smoke?: No Smoking Status: Never smoker Does the pt drink ETOH?: No Does the pt have substance abuse?: No - Immunizations Immunizations are current?: Yes - POLST Patient has POLST: No POLST Status: Full Code PD ED PE NORMAL - General General: Alert and oriented X 3, No acute distress, Well developed/nourished - HEENT HEENT: Atraumatic, Moist mucous membranes - Neck Neck: Supple, no meningeal sign - Cardiac Cardiac: RRR, Strong equal pulses - Respiratory Respiratory: No respiratory distress, Clear bilaterally - Abdomen Abdomen: Normal bowel sounds, Soft, Non distended, Other (Right upper quadrant tenderness to palpation, well-healed abdominal incision, no rebound, no masses,) - Derm Derm: Warm and dry - Neuro Neuro: Normal speech Results - Vitals Vitals: Vital Signs - 24 hr 04/06/22 04/06/22 04/06/22 21:31 21:33 23:33 Temperature 37.3 C 37.3 C 37.0 C Heart Rate 90 90 88 Respiratory 19 19 16 Rate Blood Pressure 124/76 124/76 122/72 O2 Saturation 96 96 98 04/07/22 01:57 Temperature 36.9 C Heart Rate 81 Respiratory 16 Rate Blood Pressure 119/71 O2 Saturation 99 Oxygen O2 Source Room air - Labs Labs: Laboratory Tests 04/06/22 04/06/22 04/06/22 21:30 22:04 22:04 WBC 16.0 H RBC 4.19 L Hgb 12.4 Hct 38.3 MCV 91.4 MCH 29.6 MCHC 32.4 RDW 12.3 Plt Count 288 MPV 10.7 Neut # (Auto) 13.0 H Lymph # (Auto) 1.8 Glasscock # (Auto) 1.0 Eos # (Auto) 0.1 Baso # (Auto) 0.1 Absolute Nucleated RBC 0.00 Nucleated RBC % 0.0 Sodium 137 Potassium 3.7 Chloride 103 Carbon Dioxide 21 Anion Gap 13.0 BUN 15 Creatinine 0.7 Estimated GFR (MDRD) 80 L Glucose 109 H Calcium 9.2 Total Bilirubin 0.7 AST 20 ALT 16 Alkaline Phosphatase 92 Total Protein 7.2 Albumin 4.3 Globulin 2.9 Albumin/Globulin Ratio 1.5 Lipase 19 L Urine Color ORANGE Urine Clarity CLEAR Urine pH 6.0 Ur Specific Jermyn >=1.030 H Urine Protein TRACE Urine Glucose (UA) NEGATIVE Urine Ketones 40 H Urine Occult Blood NEGATIVE Urine Nitrite NEGATIVE Urine Bilirubin NEGATIVE Urine Urobilinogen 1 (NORMAL) Ur Leukocyte Esterase NEGATIVE Ur Microscopic Review NOT INDICATED Urine Culture Comments NOT INDICATED PD MEDICAL DECISION MAKING - ED course Complexity details: reviewed results, re-evaluated patient, d/w patient, d/w family ED course: Patient presenting for evaluation of a right upper quadrant pain that worsened after eating eggs and toast this morning. She is recently had 2 Visits to [facility] with work-ups to include CT scan, ultrasound and MRI With findings of gallbladder distention. Labs reviewed with mild leukocytosis. CT and ultrasound findings with no change. Patient is feeling better here after fluids and pain medication.At this time I do not believe her symptoms suggest acute cholecystitis. She does have an appointment to be seen in 1 week by the surgeons at [facility] and to get a HIDA scan. She was previously recommended to be on a clear liquid diet and advance as tolerated and I reiterated the importance of this. Patient and daughter at bedside are counseled regarding concerning symptoms to return for. Departure - Departure Disposition: 01 Home, Self Care Clinical Impression: Right upper quadrant abdominal pain Condition: Stable Instructions: ED Diet Low Fat, ED Diet Clear Liquid Comments: Please keep your appointment [facility] For further evaluation of your gallbladder. In the meanwhile they have recommended that you start a clear liquid diet for the next 24 to 48 hours and then slowly advance to regular diet as tolerated.You will also want to Avoid any fatty foods, alcohol, caffeine, spicy or acidic foods as this may worsen your symptoms. If you have any worsening symptoms such as fever, increased pain, vomiting or have any new concerns please return to the emergency department. Discharge Date/Time: 04/07/22 01:57
--- NOTE | 2022-04-07 00:26 | Ultrasound Report ---
PROCEDURE: Abdomen Limited INDICATIONS: RUQ pain TECHNIQUE: Real-time focused scanning was performed of the abdomen, with image documentation. COMPARISON: CT abdomen pelvis 11/11/2021 FINDINGS: The liver demonstrates slightly increased echogenicity with mildly coarse sonographic echotexture sug gestive of fatty infiltration. The gallbladder is distended without gallstones, wall thickening, or pericholecystic fluid. No definite intrahepatic biliary ductal dilatation. There is mild dilatation of the common bile duct which measures up to 0.9 cm. The pancreatic head and body appear unremarkable sonographically. Pancreatic tail not well seen. Right kidney measures 8.8 cm. No hydronephrosis. IMPRESSION: 1. Distention of the gallbladder without evidence of cholelithiasis or definite cholecystitis. If the re is clinical suspicion for gallbladder dysfunction, further evaluation may obtained with a HIDA sca n. 2. Mild biliary ductal dilatation. Findings are nonspecific and correlation is recommended clinically including with laboratory values. Reviewed by: Tenzin Brothers MD on 04/07/2022 12:34 AM PST Approved by: Tenzin Brothers MD on 04/07/2022 12:34 AM PST Station ID: [id number]
--- NOTE | 2022-04-07 01:10 | CT Report ---
PROCEDURE: ABDOMEN/PELVIS W INDICATIONS: R sided abd pain CONTRAST: Omni 300 100ml TECHNIQUE: After the administration of intravenous contrast, 5 mm thick sections acquired from the diaphragms to the symphysis. 5 mm thick coronal and sagittal reformats were acquired. For radiation dose reducti on, the following was used: automated exposure control, adjustment of mA and/or kV according to jessica ent size. COMPARISON: Concurrent limited abdominal ultrasound. CT abdomen pelvis 11/11/2021. FINDINGS: Image quality: Excellent. Lung bases:There is minimal dependent atelectasis. A small 0.4 cm left lower lobe pulmonary nodule i s demonstrated on series 4 image 14. Findings not definitely visualized on the prior study.. Heart: Heart is normal in size. ABDOMEN: Liver: No mass lesion. Gallbladder: Within normal limits without calcified gallstones. Biliary ducts:There is mild extrahepatic biliary ductal dilatation, with the common bile duct measur ing up to approximately 1.0 cm. No discrete calcified second stone is identified. There is a duodenal diverticulum in the region of the ampulla Vater which may be associated with mild biliary obstructio n secondary to infection or inflammatory change. No discrete gallstone identified. Pancreas: Unremarkable. Spleen: Normal in size. Adrenal Glands: No adrenal nodules. Kidneys and Ureters: No hydronephrosis. Stomach and Bowel: Stomach, small bowel loops, and colon are normal in caliber and wall thickness. T here is a small diverticulum along the posterior wall of the stomach. No pericecal inflammatory espinal es to suggest appendicitis. There is colonic diverticulosis without acute diverticulitis. Peritoneum: No abnormal intraperitoneal fluid. No free air. Ventral Wall: No hernia. Abdominal Nodes: No retroperitoneal or mesenteric adenopathy by size criteria. Vessels: Aorta and inferior vena cava are normal in size. PELVIS: Pelvic Organs:There is a curvilinear IUD device within the uterus. Bladder: Unremarkable. Pelvic Nodes: No enlarged lymph nodes. Miscellaneous: No inguinal hernias are seen. Bones: Visualized osseous structures demonstrate no suspicious focal lesions. IMPRESSION: 1. No definite acute intra-abdominal abnormality. Specifically, no pericecal inflammatory changes to suggest appendicitis. 2. Diffuse colonic diverticulosis without acute diverticulitis. Reviewed by: Tenzin Brothers MD on 04/07/2022 1:18 AM PST Approved by: Tenzin Brothers MD on 04/07/2022 1:18 AM PST Station ID: [id number]
[2022-04-07 01:58] VITALS: BP 119/71
[2022-04-07] MEDS ORDERED: iohexoL-300 100 ML VIAL IVP ONE (02:52)
== END 2022-04-07 01:57 | disposition home or self-care (01) ==
LOC: EDUNIT# → ED 21:23
DX: R10.11 Right upper quadrant pain (principal); R11.0 Nausea; D72.829 Elevated white blood cell count, unspecified; K82.8 Other specified diseases of gallbladder
CPT/HCPCS: 36415; 74177; 76705; 80053; 81003; 83690; 85025; 96374; 96375; 99282; 99284; Q9967; 81001; 87086

== ENCOUNTER → 2022-04-26 | Outpatient (CLI) | payer MEDICARE, MEDICAID | END | disposition short-term general hospital (02) | LOC: EMS 01:11 | DX: R10.11 Right upper quadrant pain (principal); R10.12 Left upper quadrant pain; R11.2 Nausea with vomiting, unspecified | CPT/HCPCS: A0425; A0427; A0888 ==